=== PATIENT | female | born 1940 | race Caucasian/White ===

== ENCOUNTER 2017-03-07 07:59 | Inpatient (IN) | payer MEDICARE ==
[~2017-03-07] VITALS: Ht 160 cm; Wt 96.9 kg
[2017-03-07 08:04] VITALS: BP 195/81; PULSE 83; RESP 24; O2SAT 95
--- NOTE | 2017-03-07 08:26 | ED.REPORT ---
HPI-General Illness Date of Service March 07, 2017 ED Provider: Arielle Rogers MD The patient is a 76 year old female w/ a hx of DM, breast cancer, lumpectomy, radiation, stage 5 kidney disease, who presents to the ED due to difficulty breathing. For the past several evenings, she has been waking up in the middle of the night due to SOB. C/o associated jaw pain. She has noticed increased SOB during the day which increases with exacerbation and LE edema for the last month. She had pneumonia in early January and was put on a 5 day course of Zithromax in the beginning of February. She denies fever, cough, chest pain, or any other lung issues. Nursing Notes Stated Complaint: SOB Chief Complaint: Respiratory Complaints Nursing Notes Reviewed: Yes Allergies: Coded Allergies: Sulfa (Sulfonamide Antibiotics) (Verified Allergy, Intermediate, rash, ) amoxicillin (Verified Allergy, Intermediate, rash, 03/07/17) Scheduled Amlodipine (Amlodipine) 5 Mg Tablet 5 MG PO HS Atorvastatin (Lipitor) 20 Mg Tablet 20 MG PO DAILY Furosemide (Furosemide) 20 Mg Tab 20 MG PO DAILY Glipizide (Glipizide) 5 Mg Tablet 5 MG PO BID Insulin Detemir (Levemir Flextouch) 100 Unit/1 Ml Insuln.pen 10 UNIT SQ DAILY Lisinopril (Lisinopril) 10 Mg Tablet 10 MG PO DAILY General Time Seen by MD: 08:21 Chief Complaint Other (difficulty breathing ) Hx Obtained From: Patient Arrived By: Walk-in Sudden in Onset?: Yes Onset Occurred: 6 days ago Symptom Duration: Since onset Severity: Current: No pain currently Recent Healthcare: Recent doctor visit Similar Sx Previous: No Past Medical History Past Medical History Notes: high blood pressure high cholesterol Past Medical History breast cancer w/ radiation and lumpectomy stage 5 kidney disease Reports: Diabetes mellitus Past Surgical History lumpectomy Smoking History Unknown if Ever Smoker Social History Other Social History: Good social support, Local resident Ambulatory Status Independent Review of Systems LE edema jaw pain Full Review of Systems Constitutional: Denies: Fever Respiratory: Reports: Shortness of breath, Denies: Non-productive cough Cardiovascular: Denies: Chest pain Neurologic: Denies: Change LOC Complete sys rev & neg: except as marked. Physical Exam Vital Signs Vital Signs Date Time Temp Pulse Resp B/P Pulse Ox O2 Delivery O2 Flow Rate FiO2 03/07/17 11:20 84 25 194/64 98 Room Air 03/07/17 08:04 36.2 83 24 195/81 95 Initial VS: Reviewed Head / Eyes: Atraumatic, Normocephalic, PERRL ENT: Mucous membranes moist Respiratory: Breath sounds normal, Clear to auscultation, No respiratory distress Abdomen / GI: Soft, Non-tender, No guarding, No rebound, No distention Back: No CVA tenderness Lymphatic: No lymphadenopathy Skin: Warm, Dry Neurologic: Alert, Oriented, Nonfocal Psychiatric: Mood/affect normal, Behavior normal, Normal thought content General/Constitutional: Awake, Alert, Cooperative, Not toxic appearing Neck Vascular: Positive: JVD moderate (to the angle of the jaw) Cardiovascular: Heart rate NL (no S3), Regular rhythm Lower Ext Edema: Positive: Bilateral 2+ (without chronic venous stasis changes ) Interpretation & Diagnostics Lab Results Interpretation Result Diagram: 03/07/17 0910 03/07/17 0910 Test 03/07/17 09:10 03/07/17 11:21 White Blood Count 6.4th/mm3 (3.8-10.1) Red Blood Count 3.17mil/mm3 (3.90-5.20) Hemoglobin 9.2g/dL (12.0-15.6) Hematocrit 29.3% (35.0-46.0) Mean Corpuscular Volume 92.4fL (81-100) Mean Corpuscular Hemoglobin 29.0pg (27.0-35.0) Mean Corpuscular Hemoglobin Concent 31.4% (32.0-37.0) Red Cell Distribution Width 14.2% (12.3-15.4) Platelet Count 296bil/L (150-400) Neutrophils (%) (Auto) 63.5% (40-74) Lymphocytes (%) (Auto) 20.6% (14-46) Monocytes (%) (Auto) 8.6% (4-12) Eosinophils (%) (Auto) 4.8% (0-5) Basophils (%) (Auto) 2.3% (0-3) Sodium Level 140mEq/L (134-144) Potassium Level 5.7mEq/L (3.5-5.2) Chloride Level 107mEq/L (97-108) Carbon Dioxide Level 17mmol/L (18-29) Blood Urea Nitrogen 61mg/dL (8-27) Creatinine 3.02mg/dL (0.57-1.00) Estimat Glomerular Filtration Rate 22mL/min (>59) Glucose Level 128mg/dL (60-99) Lactic Acid Level 0.7mmol/L (0.4-2.0) Calcium Level 9.3mg/dL (8.5-10.1) Total Bilirubin 0.7mg/dL (0.0-1.2) Aspartate Amino Transf (AST/SGOT) 16U/L (0-50) Alanine Aminotransferase (ALT/SGPT) 14U/L (0-32) Alkaline Phosphatase 87U/L (25-165) Troponin T 0.178ug/L (0.0-0.011) Total Protein 6.8g/dL (6.4-8.4) Albumin 3.5g/dL (3.4-5.0) Procalcitonin 0.16ng/mL (0.00-0.08) Urine Color Straw (YELLOW) Urine Appearance Hazy (CLEAR,HAZY) Urine pH 6.0 (5.0-8.0) Urine Specific [place] 1.020 (1.003-1.035) Urine Protein 100mg/dL (NEG,TRACE) Urine Glucose (UA) 100mg/dL (NEGATIVE) Urine Ketones Negativemg/dL (NEGATIVE) Urine Occult Blood Small (NEGATIVE) Urine Nitrite Negative (NEGATIVE) Urine Bilirubin Negative (NEGATIVE) Urine Urobilinogen Normalmg/dL (NORMAL) Urine Leukocyte Esterase Small (NEGATIVE) Urine RBC 0-2/hpf (0-2) Urine WBC 11-50/hpf (0-5) Urine Epithelial Cells Occasional/hpf (NONE-MOD) Urine Crystals None seen (NONE SEEN) Urine Bacteria Few/hpf (NONE-FEW) Urine Hyaline Casts None/lpf (NONE) Urine Granular Casts None seen (NONE SEEN) Urine Waxy Casts None seen (NONE SEEN) Urine Red Blood Cell Casts None seen (NONE SEEN) Urine White Blood Cell Casts None seen (NONE SEEN) Urine Mucus None seen (None Seen) Urine Trichomonas None seen (NONE SEEN) Urine Yeast None (NONE SEEN) Urinalysis Comment None Urine Culture Reflexed Indicated ECG Interpretation ECG Interpretation: LVH w/ IVCD, LAD and secondary repolarization abnormal no comparison Time: 08:44 Interpreted by: ED physician Normal ECG Interpretation: Normal sinus rhythm (rate 82) X-Ray Chest Interpretation Chest Xray Interpretation: IMPRESSION: 1. Cardiomegaly with small pleural effusions and mild pulmonary edema suggesting congestive heart failure. 2. Asymmetric right infrahilar opacities consistent with atelectasis or consolidation. Dictated by: Mervin Sánchez M.D. on 03/07/2017 at 10:01 Approved by: Mervin Sánchez M.D. on 03/07/2017 at 10:06 View: Portable Interpretation / Wet Read by: Interpret - Radiologist Re-Eval/Medical Decision Med Decision/Clinical Course 76-year-old woman presents with a month of increasing lower extremity edema, and 2 weeks of increasing exertional dyspnea, 3 days of severe orthopnea. Exam chest x-ray and labs are all consistent with acute congestive heart failure for which she says she has never had a previous diagnosis. Her troponin is significantly elevated without ST elevation suggesting possibility of a non-STEMI sometime within the last few days at the reason for the worsening orthopnea. In the ER she is received IV Lasix and started on IV heparin, IV heparin rather than Lovenox is chosen due to her poor renal function, with the concerns for recent NSTEMI. Will need additional evaluation and likely echocardiogram to sort through timing and final diagnosis of NSTEMI Reviewed findings with patient and her family. She stable at time of transfer to the floor. Time of Eval: 11:16 Re-Evaluation/Progress Note: Pt rechecked. Pt walked to the bathroom and became extremely SOB, pale, and diaphoretic, but no chest pain. Symptoms resolved within 5 minutes. Informed pt of diagnosis of heart failure. Plan for admissionand to start heperin drip. She understands and agrees with plan. All questions addressed. Consultation #1: Referral / Consult Name: Primitivo Smith MD Consulted With: Cardiology Call Returned at: 11:06 Note: Case discussed. Dr. Smith will consult. Recommends to start heperin drip until we can get everything sorted out. Consultation #2: Referral / Consult Name: Naty Lopez DO Consulted With: Hospitalist Call Returned at: 12:55 Beer Merchant: Agrees with eval, Agrees with plan, Accepts admit Note: Case discussed with Dr. Lopez. Consultation #3: Referral / Consult Name: JohnNaty Consulted With: Hospitalist Call Returned at: 14:13 Beer Merchant: Accepts admit Note: Dr. Lopez visits pt in the ED. Counseled Regarding: Diagnosis, Lab results, Need for admission Discharge & Departure Primary Impression: CHF (congestive heart failure) Congestive heart failure type: unspecified congestive heart failure type Congestive heart failure chronicity: unspecified congestive heart failure chronicity Qualified Code: I50.9 - Heart failure, unspecified Additional Impression: NSTEMI (non-ST elevated myocardial infarction) Disposition: ADMITTED TO HOSPITAL Discharge Condition All VS Reviewed: Yes Condition: Stable Referrals: [facility] Scribe Attestation Portion of this note were transcribed by Ijeoma Ojeda. I, Dr. Arielle Rogers, personally performed the history, physical exam, and medical decision-making: I reviewed and confirmed the accuracy for the information in the transcribed note. Signed by: roberto Mlutani, 03/07/17 1400 copies to: [facility] Arielle Rogers MD March 07, 2017 08:26 Ijeoma Ojeda March 07, 2017 08:36
[2017-03-07] MEDS ORDERED: ATOR20TA PO (09:17)
[2017-03-07] MEDS ORDERED: INSU100I25 SQ (09:17)
[2017-03-07] MEDS ORDERED: GLPZ5T PO (09:17)
[2017-03-07] MEDS ORDERED: FUR20 PO (09:17)
[2017-03-07] MEDS ORDERED: LISI10TA PO (09:17)
[2017-03-07 09:31] LABS: BASOPHILS % (AUTO) 2.3 % (0-3); EOSINOPHILS % (AUTO) 4.8 % (0-5); MONOCYTES % (AUTO) 8.6 % (4-12); Mean Corpuscular Volume 92.4 fL (81-100); NEUTROPHILS % (AUTO) 63.5 % (40-74); Platelet Count 296 bil/L (150-400)
[2017-03-07] MEDS ORDERED: Furosemide 10 mg/mL 10 mL Inj IVPUSH ONE (10:05)
--- NOTE | 2017-03-07 10:07 | DRSVH ---
PROCEDURE: X-RAY CHEST ONE VIEW, PORTABLE ([id number]) INDICATIONS: dyspnea TECHNIQUE: One view of the chest was acquired. COMPARISON: None. FINDINGS: Surgical changes and devices: None. Lungs and pleura: There are small bilateral pleural effusions with mild associated compressive atelec tasis in the lung bases. Asymmetric right infrahilar opacities are also noted consistent with atelec tasis or consolidation. There is mild pulmonary edema. Mediastinum: Mediastinal contours appear normal. Heart size is enlarged. Bones and chest wall: No suspicious bony lesions. Overlying soft tissues appear unremarkable. IMPRESSION: 1. Cardiomegaly with small pleural effusions and mild pulmonary edema suggesting congestive heart fa ilure. 2. Asymmetric right infrahilar opacities consistent with atelectasis or consolidation. Dictated by: Mervin Sánchez M.D. on 03/07/2017 at 10:01 Approved by: Mervin Sánchez M.D. on 03/07/2017 at 10:06
[2017-03-07 10:27] LABS: TROPONIN T 0.178 ug/L (0.0-0.011)
[2017-03-07] MEDS ORDERED: Heparin 25K Unit/500mL 0.45 NS 25,000 UNIT in IV Premix 1 EACH IV ONE (11:10)
[2017-03-07] MEDS ORDERED: Heparin 5,000 Unit/mL Inj IVPUSH ONE (11:10)
[2017-03-07 11:20] VITALS: BP 194/64; PULSE 84; RESP 25; O2SAT 98
[2017-03-07 11:45] LABS: APPEARANCE,URINE HAZY (CLEAR,HAZY); COLOR,URINE STRAW (YELLOW); OCCULT BLOOD,URINE SMALL (NEGATIVE); UROBILINOGEN,URINE NORMAL (NORMAL)
[2017-03-07] MEDS ORDERED: SODIUM CHLORIDE 0.9% IV PRN (12:05)
[2017-03-07] MEDS ORDERED: HEPARIN IV PRN (12:05)
[2017-03-07] MEDS ORDERED: Heparin 25,000 UNIT in 0.9% Sodium Chloride 475 ML IV PRN ×6 (12:16→12:30)
[2017-03-07] MEDS ORDERED: AMLO5TAB2 PO (12:54)
[2017-03-07] MEDS ORDERED: Polyethylene Glycol (PEG) 17 Gm Powder PO PRN (14:15)
[2017-03-07] MEDS ORDERED: Alum-Mag Hydrox-Simeth 30 mL Suspension PO PRN (14:15)
[2017-03-07] MEDS ORDERED: Ondansetron 2 mg/mL 2 mL Inj IVPUSH PRN (14:15)
[2017-03-07] MEDS ORDERED: Heparin 25K Unit/500mL 0.45 NS 25,000 UNIT in IV Premix 1 EACH IV SCH (14:25)
[2017-03-07] MEDS ORDERED: Dextrose 10% 250 ML IV ONE (14:30)
[2017-03-07] MEDS ORDERED: Glucose 40% Oral Gel 15 Gm Tube PO PRN (14:30)
--- NOTE | 2017-03-07 14:45 | NUR ---
Admission Patient arrived to the floor from ED via bed accompanied by family. Denies any chest pain but states she does feel SOB when ambulating to restroom and back to bed. Gait is steady. Vital signs taken, blood pressure elevated. Oriented to floor, Heparin GTT infusing. Call light within reach.
[2017-03-07 14:49] LABS: Magnesium 2.1 mg/dL (1.6-2.6)
[2017-03-07 14:50] VITALS: PULSE 80
[2017-03-07 14:52] VITALS: BP 182/79; PULSE 78; RESP 18; O2SAT 93
[2017-03-07] MEDS ORDERED: Nitroglycerin 2% 1 Gm Ointment TOPICAL SCH (15:35)
[2017-03-07] MEDS: Sodium Chloride LOK Flush 10 mL Syringe IVFLUSH SCH (15:42)
[2017-03-07 16:02] LABS: Creatine Kinase 61 U/L (21-215)
[2017-03-07 16:05] LABS: TROPONIN T 0.166 ug/L (0.0-0.011)
[2017-03-07] MEDS: Insulin LISPRO 300 Unit/3 mL Inj SUBQ SCH ×2 (17:09→22:00)
[2017-03-07 17:45] VITALS: BP 181/73; PULSE 74; RESP 18; O2SAT 94
--- NOTE | 2017-03-07 18:19 | NUR ---
Vital Signs Dr. Lopez paged regarding patient's blood pressure of 181/73.
[2017-03-07 21:07] VITALS: BP 169/65; PULSE 78; RESP 18; O2SAT 94
[2017-03-07] MEDS: Furosemide 10 mg/mL 10 mL Inj IVPUSH SCH (21:17)
[2017-03-07 21:20] LABS: Creatine Kinase 57 U/L (21-215)
[2017-03-07 21:26] LABS: TROPONIN T 0.175 ug/L (0.0-0.011)
[2017-03-07] MEDS: Heparin 5,000 Unit/mL Inj IVPUSH PRN (21:39)
--- NOTE | 2017-03-07 22:16 | NUR ---
Lasix/Heparin/Kayexelate Administered lasix 80mg IV push for 20 minutes. Kayexelate 5g(20mL) administered verbal ordered of Dr. Lopez for Potassium of 5.9. Repeat CMP will be in am. Heparin drip running at 1125 units per hour. 3000 units administered per heparin protocol, for a ptt of 38.5. Next PTT draw will be @0221. No s/sx of bleeding.
--- NOTE | 2017-03-07 22:54 | PCM.HPMED ---
Subjective Date of Service March 07, 2017 Primary Provider: Admitting Physician: Naty Lopez DO Primary Care Physician: Nika Beck,Jesse Bedolla MD Attending Physician: Naty Lopez DO Admit Status: From the Emergency Department Chief Complaint: dyspnea History of Present Illness: 76-year-old pleasant white female with past medical history of diabetes type II hypertension, end-stage renal disease, hyperlipidemia, CAD, breast cancer status post lumpectomy is presenting with a chief complaint of dyspnea and orthopnea. Patient states that she has had pneumonia in early January and was recovering from it. she states that 2 weeks ago she started becoming more dyspneic, leg started more swollen. She feels she started getting better from that. She was recently treated for UTI 2 weeks ago. She did not take her medications this morning. For the past several evenings, she has been waking up in the middle of the night due to SOB. C/o associated jaw pain. She has noticed increased SOB during the day which increases with exacerbation and LE edema for the last month. She had pneumonia in early January and was put on a 5 day course of Zithromax in the beginning of February. She denies fever, cough, chest pain, or any other lung issues. She says that she was never told she had heart disease or CHF. She feels that her A1c is fairly well controlled. She does not have a current mate chief. She does see a clinic cma he she feels his name is Dr. Ruff in [place].Exam chest x-ray and labs are all consistent with acute congestive heart failure for which she says she has never had a previous diagnosis. Chest x-ray in the ER showed cardiomegaly and mild pulmonary congestion, asymmetric right infrahilar opacities, concerning for consolidation. Heparin drip was initiated after Dr. Smith was contacted. Troponin was elevated at 0.178. Blood pressure is elevated at 194/64. Hemoglobin is 9.2. Her creatinine is 3.2 she is given Lasix 80 mg, aspirin 325 mg, and is productive heparin drip. In the room her heart rate is 78 respirations of 20 Patient is admitted to the [facility] team for management of dyspnea and orthopnea likely secondary to an STEMI, , hyperkalemia, CHF, ESRD stage 5, diabetes type II, UTI. Review of Systems: Gen.: Endorses weight gain patient has not been having fevers and malaise Eyes: no visual disturbances or blurring vision HEENT: No nose/throat drainage, no pain in ears or throat, no hearing loss Lymph: No lymph nodes noted Cardiac: No chest pain, positive for orthopnea, positive for PND, negative for palpitations , positive for pedal edema or +dyspnea on exertion Pulmonary: Negative for wheezing or bringing up of sputum + worsening dyspnea and cough, negative for left-sided chest pain GI: No anorexia nausea vomiting blood or black in the stool : no dysuria hematuria urinary frequency or decrease in urine output Musculoskeletal: Joint swelling no joint pain no new muscle aches or back pain Neuro: No syncope, seizures no loss of consciousness no new focal weakness, numbness or tingling Psychiatric: New new anxiety insomnia or depression Endocrine: No new heat or cold intolerances polyuria or polydipsia Hematology: No lymphadenopathy or easy bleeding or bruising noted skin: No new rashes, stasis dermatitis All other review of systems negative except for as stated above and in the history of present illness Allergies Coded Allergies: Sulfa (Sulfonamide Antibiotics) (Verified Allergy, Intermediate, rash, ) amoxicillin (Verified Allergy, Intermediate, rash, 03/07/17) PMH Social History Hx Alcohol Use: No Hx Substance Use: No Smoking Status: Unknown if Ever Smoker Exam Vital Signs Vital Sign - Last Date Time Temp Pulse Resp B/P Pulse Ox O2 Delivery O2 Flow Rate FiO2 03/07/17 14:30 36.2 84 25 194/64 98 Room Air Exam General: NAD, laying in bed, some what dyspneic male HEENT: NCAT, poor dentition Eyes: [place] conjunctivae. No ptosis, PERRL Neck: No masses, trachea midline, no thyromegaly Lungs: CTA with normal respiratory effort, no crackles or wheezes CV: RRR, soft systolic murmurs/no rubs/no gallops, normal PMI GI: Soft, non-tender with no hepatosplenomegaly MSK: Normal gait and station, no digital cyanosis Skin: Warm and dry. No rash, lesions or ulcers Psych: A&O X3, with appropriate affect Neuro: No focal deficits Lab and Diagnostics Result Diagram: 03/07/17 0910 03/07/17 0910 X-Rays, CTs and MRIs Chest x-ray IMPRESSION: 1. Cardiomegaly with small pleural effusions and mild pulmonary edema suggesting congestive heart failure. 2. Asymmetric right infrahilar opacities consistent with atelectasis or consolidation. Dictated by: Mervin Sánchez M.D. on 03/07/2017 at 10:01 Approved by: Mervin Sánchez M.D. on 03/07/2017 at 10:06 Assessment & Plan This is a pleasant 76-year-old female with a past medical history of diabetes mellitus, hypertension, hyperlipidemia, heart disease, end-stage renal disease currently not on dialysis presenting due to her tachycardia and dyspnea. Her troponin is significantly elevated without ST elevation suggesting possibility of a non-STEMI sometime within the last few days as the reason for the worsening orthopnea. Dr. Smith was consulted in the ER, he Recommends to start heperin drip until we can get everything sorted out. Assessment #1 Recent NSTEMI, present on admission: Cardiology is aware per ER -- Consult cardiology -- Continue heparin drip -- Trend troponins -- Echocardiogram -- A1c lipid panel in the a.m. -- Make sure to give patient beta juan m and statin: Avoid renal toxic medications such as lisinopril, spironolactone -- When necessary nitroglycerin, morphine -- Oxygen as needed -- Telemonitoring -- We will continue heparin drip. Assessment #2 hyperkalemia, present on admission: -- By mouth Kayexalate 5 g is given, also expect that because of Lasix her potassium will come down in the a.m. -- avoid spironolactone. Patient is hyperkalemic on admission. Assessment #3 acute congestive heart failure of unknown type: Present on admission -- Order BNP -- Lasix 80 mg IV twice a day as ordered -- Nitroglycerin, morphine, oxygen as needed -- Daily weights, accurate I&O's Assessment #4 Diabetes type II with hyperglycemia complications -- No sliding scale insulin is ordered -- A1c, lipid panel in the a.m. Assessment #5 UTI: The patient was recently treated -- We will wait for the cultures for treatment Assessment #6 hypertension: Elevated blood pressure present admission she did not take her meds. 8. She has received Demerol 9, spironolactone in the ER -- We will continue her evening medications -- We will add metoprolol 12.5 twice a day Assessment #7 end-stage renal disease: -- Consulted nephrology, appreciate their recommendations -- Avoid renal toxic medications Disposition: She will likely need a better control of her CHF then a cath Procedure. Resuscitation Status: CPR: Attempt Resuscitation (Sr. Kathryn Castaneda is her alternate decision-maker) Time spent 45 minutes Nayt Lopez DO March 07, 2017 14:33
[2017-03-08] VITALS (8 sets, daily range): BP systolic 120–172; BP diastolic 54–70; PULSE 68–85; RESP 18; O2SAT 93–95
[2017-03-08] MEDS: Sodium Chloride LOK Flush 10 mL Syringe IVFLUSH SCH ×3 (00:30→16:28)
[2017-03-08 02:19] LABS: BASOPHILS % (AUTO) 2.4 % (0-3); EOSINOPHILS % (AUTO) 6.7 % (0-5); MONOCYTES % (AUTO) 10.8 % (4-12); Mean Corpuscular Hemoglobin 29.3 pg (27.0-35.0); Mean Corpuscular Volume 91.9 fL (81-100); NEUTROPHILS % (AUTO) 57.1 % (40-74); Platelet Count 255 bil/L (150-400)
[2017-03-08] MEDS: Furosemide 10 mg/mL 10 mL Inj IVPUSH SCH ×2 (06:30→16:32)
[2017-03-08] MEDS: Insulin LISPRO 300 Unit/3 mL Inj SUBQ SCH ×4 (08:00→22:00)
--- NOTE | 2017-03-08 09:13 | DRSVH ---
[facility] [address] [place] [address] Echocardiogram Report Name: Nicole ROY te: 03/08/2017 Bess ght: 62 in Hospital Exam Location: [facility] ght: 220 lb Gender: Female BSA : 2.0 m2 : 1940 Age: 76 yrs BP: 163/54 mmHg Reason For Study: CHF Ordering Physician: [facility]PITAL[facility] Performed By: Ember Rivers Referring Physician: DR. TORITO HAIDER ([place]) Interpretation Summary Left ventricular wall thickness is mildly increased. Left ventricular systolic function is normal without obvious focal wall motion abnormalities. The ejection fraction is estimated to be 60-65%. Assessment of diastolic parameters suggests a pseudonormalization pattern, consistent with elevated filling pressures. The right ventricle is normal in size and function. The right ventricular systolic pressure is estimated at 62 mmHg assuming a right atrial pressure of 15 mm Hg. The left atrium is mildly dilated. The right atrium is mildly dilated. There is moderate mitral regurgitation. There is moderate tricuspid regurgitation. There is no other significant valvular heart disease. The aortic root is normal size. There is a trivial pericardial effusion noted. There are no echocardiographic or Doppler indications for cardiac tamponade. Findings are consistent with acute diastolic heart failure. Procedure: A two-dimensional transthoracic echocardiogram with color flow and Doppler was performed. The study quality was technically difficult. The apical views were difficult to obtain and are suboptimal in quality. A contrast injection of Definity was performed to improve assessment of LV function. Contrast was injected into an intravenous site in the left arm. A total of 3 cc of contrast was given. There is no prior echocardiogram noted for this patient. The patient was in normal sinus rhythm during the exam. The patient did well with the Definity Contrast. Left Ventricle: The left ventricle is normal in size. Left ventricular wall thickness is mildly increased. Left ventricular systolic function is normal. The ejection fraction is estimated to be 60-65%. There are no obvious focal wall motion abnormalities noted but poor endocardial definition reduces the sensitivity for the detection of such. Assessment of diastolic parameters suggests a pseudonormalization pattern, consistent with elevated filling pressures. Right Ventricle: The right ventricle is normal in size and function. Atria: The left atrium is mildly dilated. The right atrium is mildly dilated. There is no Doppler evidence for an atrial septal defect. Mitral Valve: The mitral valve leaflets appear mildly thickened, but open well. There is mild mitral annular calcification. There is moderate mitral regurgitation. Aortic Valve: The aortic valve is trileaflet. There is mild aortic valve sclerosis. The aortic valve opens well. No aortic regurgitation is present. Tricuspid Valve: The tricuspid valve leaflets are thin and pliable. There is moderate tricuspid regurgitation. The right ventricular systolic pressure is estimated at 62 mmHg assuming a right atrial pressure of 15 mm Hg. Pulmonic Valve: The pulmonic valve leaflets are thin and pliable; valve motion is normal. There is no pulmonic valvular regurgitation. There is no other significant valvular heart disease. Great Vessels: The aortic root is normal size. The dimensions of the ascending aorta are normal. The pulmonary artery is normal size. The IVC is dilated (diameter is greater than 2.1 cm) and it collapses less than 50% with a sniff. This suggests a high right atrial pressure of 15 mm Hg. Pericardium/ Pleura There is a trivial pericardial effusion noted. There are no echocardiographic or Doppler indications for cardiac tamponade. There is no pleural effusion. MMode/2D Measurements & Calculations LVIDd: 5.4 cm LA dimension: 4.6 cm RA long axis LVOT diam: 2.1 cm LVIDs: 3.8 cm AoV Opening FS: 30.1 % LA A2 area: 23.8 cm RA area EPSS: 1.9 cm LA A4 area: 21.7 cm Ao root diam IVSd: 1.4 cm LA length (vol) : 21.2 cm LVPWd: 1.1 cm RA vol asc Aorta Diam LA vol: 73.4 ml : 71.1 ml LA vol index RA Ao Arch Diam (Prox : 35.3 mm2 Trans): 2.3 cm : 36.4 ml/m2 LV armstrong. diameter/BSA LV sys. diameter/BSA RVD2 (mid) (cm/m^2): 2.7 (cm/m^2): 1.9 : 3.6 cm Doppler Measurements & Calculations Ao V2 max MV E max bradley MV E/A: 1.4 TR max bradley : 179.1 cm/sec : 122.3 cm/sec Med Peak E' Bradley : 341.4 cm/sec Ao max PG MV A max bradley TR max P.6 mmHg : 12.8 mmHg : 84.7 cm/sec E/E' med: 26.9 PA V2 max Ao mean PG MV P1/2t Lat Peak E' Bradley : 68.8 cm/sec : 42.1 msec PA mean P.1 mmHg LVOT Max Bradley E/E' lat: 17.8 PA Accel Time : 94.5 cm/sec MR ERO: 0.12 cm2 E/e' average: 22.3 : 0.09 sec YONY(I,D) Pulm A Revs Dur : 1.8 cm2 MV A dur: 0.14 sec sev ratio MV dec time MV P1/2t max bradley Ao V2 mean LV V1 max PG : 0.14 sec : 132.8 cm/sec MVA(P1/2t) Ao V2 VTI: 41.2 cm LV V1 VTI: 21.7 cm : 5.2 cm2 YONY(V,D): 1.8 cm2 MR flow rate PA V2 mean YONY indexed to BSA Pulm A Revs Dur - MV : 69.1 cm3/sec : 52.1 cm/sec (cm^2/m^2): 0.89 A Dur: -0.02 msec MR PISA radius Reading Physician:KARTHIK
[2017-03-08] MEDS: Heparin 5,000 Unit/mL Inj IVPUSH PRN (09:21)
--- NOTE | 2017-03-08 12:58 | PCM.CHPCAR ---
Consult Subjective Date of service March 08, 2017 Date of admit March 07, 2017 at 13:45 Provider Requesting Consult Primary Care Physician Primary Care Physician: Nika Beck,Jesse Bedolla MD Chief Complaint shortness of breath and leg swelling History of Present Illness This patient is a 76 year old woman with no past history of coronary artery disease that presented to the hospital with one week of increasing shortness of breath and peripheral edema. Claims prior to this she had been recovering from pneumonia in January and doing well but inking it was returning. Past medical history is significant for end-stage renal disease, type II diabetes mellitus, hyperlipidemia, hypertension, peripheral neuropathy, breast cancer. She does admit to one episode of "jaw and facial pain for approximately 30 minutes sometimes this past week. It was not associated with activity specifically. It was resolved after she "brushed her teeth" she has not had any nausea vomiting or sweats. She denies palpitations or exertional dyspnea. She does admit to exertional dyspnea only in the past week with some progression. She has not specifically noticed any changes in her weight. She is somewhat vague in describing chest pressure in general. She does admit to a "feeling in her chest" when she is short of breath. She has had multiple episodes of orthopnea waking her at night. She has recently moved back to the area from [place]. Of note she admits to a stress test for unknown reasons approximately 5 years ago while living away. We have no results at this time. She reports having an uncomfortable experience with what sounds like a pharmacologic stress test that was reportedly normal per patient. Review of Systems Review of Systems Gen.-recent pneumonia one month ago, denies fever chills or night sweats. HEENT-ears popping with some minor decrease in hearing. Denies congestion or sore throat, denies vision change. Chest-occasional cough, nonproductive shortness of breath is improving since hospitalization. Cardiovascular-improving exertional dyspnea and reports no orthopnea last night. She denies palpitations or chest pain. Previous episode of jaw pain as described above. Admits edema is improving. Abdominal-constipation, ongoing, no bowel movements since here. Recent black stool attributed to iron supplementation for her anemia. Denies bright red blood. Denies abdominal pain. -treated for UTI 2 weeks ago. Claims significant positive urine output in the hospital here with furosemide use. Denies vaginal symptom otherwise. Integument-no new rash or infection. Chronic lesion in the right upper medial thigh that she is concerned with. Endocrine-positive2 oei-[id number]-[id number] diabetes denies significant shifts in weights, sweats or chills, no thyroid disease. Denies hot flashes. Neurologic-chronic numb and tingly to her toes and feet with diabetic peripheral neuropathy. Denies headache or vision change significant focal weakness. Psychiatric-patient is experiencing some stress with recent move and buying a house back in [place] no depression. Hematological-no bruises or bleeding disorders. PMH Past Medical History Type II diabetes mellitus-since approximately 1995. Hypertension End-stage renal disease (patient aware of kidney issues over the last 2 years) Hyperlipidemia Breast cancer Peripheral neuropathy. Past Surgical History Bilateral cataract surgery Lumpectomy left breast, breast cancer. Partial removal left great toe. Hx Diabetes: YesBedside Blood Glucose: 155 Scheduled Amlodipine (Amlodipine) 5 Mg Tablet 5 MG PO HS (Reported) Atorvastatin (Lipitor) 20 Mg Tablet 20 MG PO DAILY (Reported) Furosemide (Furosemide) 20 Mg Tab 20 MG PO DAILY (Reported) Glipizide (Glipizide) 5 Mg Tablet 5 MG PO BID (Reported) Insulin Detemir (Levemir Flextouch) 100 Unit/1 Ml Insuln.pen 10 UNIT SQ DAILY ( Reported) Lisinopril (Lisinopril) 10 Mg Tablet 10 MG PO DAILY (Reported) Current Inpatient Medications Current Medications Amlodipine Besylate 5 mg HS PO; Start 03/07/17 at 21:00; Stop 03/07/17 at 21:00 ; Status DC Atorvastatin Calcium 20 mg DAILY PO Last administered on 03/08/17 08:42; Admin Dose 20 MG; Start 03/08/17 at 08:30 Furosemide 20 mg DAILY PO Last administered on 03/07/17 15:02; Admin Dose 20 MG ; Start 03/07/17 at 14:10; Stop 03/07/17 at 20:24; Status DC Amlodipine Besylate 5 mg HS PO; Start 03/07/17 at 14:15; Stop 03/07/17 at 14:26 ; Status DC Sodium Chloride 10 ml Q8 IVFLUSH Last administered on 03/08/17 08:42; Admin Dose 10 ML; Start 03/07/17 at 16:30 Al Hydrox/Mg Hydrox/Simethicone 30 ml Q6H PRN PO; Start 03/07/17 at 14:15 Ondansetron HCl 4 to 8 mg Q4H PRN IVPUSH; Start 03/07/17 at 14:15 Senna 17.2 mg BID PRN PO; Start 03/07/17 at 14:15 Polyethylene Glycol 17 gm DAILY PRN PO; Start 03/07/17 at 14:15 Acetaminophen 650 mg Q4H PRN PO; Start 03/07/17 at 14:15 Aspirin 162 mg DAILY PO; Start 03/07/17 at 14:15; Stop 03/07/17 at 14:20; Status DC Aspirin 162 mg DAILY PO Last administered on 03/08/17 08:41; Admin Dose 162 MG ; Start 03/08/17 at 08:00 Heparin Sodium (Porcine) Per Protocol for a... PRN PRN IVPUSH Last administered on 03/08/17 09:21; Admin Dose 3,000 UNIT; Start 03/07/17 at 14:25 Nitroglycerin 0.4 mg Q5MIN PRN SL; Start 03/07/17 at 14:25 Morphine Sulfate 1-2 mg Q4H PRN IVPUSH; Start 03/07/17 at 14:25 Amlodipine Besylate 5 mg HS PO; Start 03/07/17 at 21:00; Stop 03/07/17 at 21:00 ; Status DC Insulin Human Lispro Nutritional Dose to be given pr... [facility] SUBQ; Start at 17:30 Metoprolol Tartrate 12.5 mg BID PO Last administered on 03/07/17 15:02; Admin Dose 12.5 MG; Start 03/07/17 at 14:42; Stop 03/07/17 at 15:32; Status DC Nitroglycerin 2 inch NOW TOPICAL; Start 03/07/17 at 15:35 Furosemide 80 mg 06,18 IVPUSH Last administered on 03/08/17 06:30; Admin Dose 80 MG; Start 03/07/17 at 20:15 Metoprolol Tartrate 12.5 mg BID PO Last administered on 03/08/17 08:40; Admin Dose 12.5 MG; Start 03/08/17 at 08:30 Allergies: Coded Allergies: Sulfa (Sulfonamide Antibiotics) (Verified Allergy, Intermediate, rash, ) amoxicillin (Verified Allergy, Intermediate, rash, 03/07/17) Social History Occupation: retired from [employer] due to wiHx Alcohol Use: NoHx Substance Use: NoHx Tobacco Use: No (never) Smoking Status: Never Smoker Unknown if Ever Smoker Living Arrangement: [facility] (sister temporarily living with her while looking for a home) Exam Vital Signs Vital Sign - Last Date Time Temp Pulse Resp B/P Pulse Ox O2 Delivery O2 Flow Rate FiO2 03/08/17 09:23 36.7 77 18 172/70 94 Room Air Intake and Output 03/07/17 03/07/17 03/08/17 Cumulative From/Thru 15:00 23:00 07:00 03/07/17 08:04 - 03/08/17 06:39 Intake Total 450 ml 619 ml 1069 ml Output Total 1700 ml 1700 ml 3400 ml Balance -1250 ml -1081 ml -2331 ml Intake Oral 450 ml 250 ml 700 ml IV Total 369 ml 369 ml Output Urine Total 1700 ml 1700 ml 3400 ml # Bowel Movements 0 0 Objective General-the patient sitting quietly reclined in bed in no apparent distress. HEENT- eyes clear PERRLA face symmetrical, pharynx moist without redness or lesion. Neck-supple without adenopathy or thyromegaly appreciated. Chest-symmetric, breathing easy without retractions. Lungs with mild basilar crackles that partially clear with cough. Cardiovascular- heart is regular rate and rhythm without murmur click or rub. No gallop appreciated. Trace to 1+ pitting peripheral edema to lower extremities. Normal carotid upstroke without bruit. No abdominal bruit appreciated right dorsalis pedis is 1+ left pedal pulses nonpalpable. No bruits appreciated and groins. Femoral pulses not palpated. Abdominal-soft nontender positive bowel sounds 4 no bruits. Integument- benign, lesion of concern appears to be a seborrheic keratosis on her right upper medial thigh. Neurologic- patient alert and oriented 4. Positive normal movement and apparent coordination and upper extremities. Appears to have normal motor function in her lower extremities, sensitivity testing not performed. Psychiatric- the patient appears to be in good spirits, mood appropriate for situation. Lab and Diagnostics Result Diagram: 03/08/17 0835 03/08/17 0835 X-Rays, CTs and MRIs Chest x-ray per radiologist review upon admission did show cardiomegaly with small pleural effusion and mild pulmonary edema suggestive of CHF. Some asymmetry of the right infrahilar opacities consistent with atelectasis or consolidation. 12-lead ECG Charted EKG shows LVH with intraventricular conduction delay, possible previous anteroseptal infarction. Additional Diagnostics: Overnight telemetry, heart rate elevated around 120 bpm. Otherwise no alarms Echocardiogram normal LV function without focal wall motion abnormalities. EF 60-65%. Assessment of diastolic parameters suggest pseudonormalization consistent with elevated filling pressures. RV was normal in size and function. RV systolic pressure estimated 62 mmHg assuming RA pressure estimated 15 mmHg. LA is mildly dilated, RA is mildly dilated. There is moderate mitral regurgitation, moderate tricuspid regurgitation. No other significant valvular disease. Trivial pericardial effusion noted with no evidence of cardiac tamponade. Findings are consistent with acute diastolic heart failure. Assessment & Plan Assessment Patient is very pleasant 76-year-old female with no known prior history of coronary artery disease that presents with one week of dyspnea and peripheral edema with vague jaw pain as a discreet event. Past medical history is significant for end-stage renal disease, hypertension, hyperlipidemia, type II diabetes mellitus with peripheral neuropathy. Breast cancer. Patient presented to the hospital with CHF symptoms. Chest x-ray and echocardiogram verify heart failure findings. Echo suggests acute diastolic heart failure. Her troponins were elevated though given her end-stage renal disease and lack of previous available labs and old medical records it is difficult to know their significance. Our feeling is her CHF is most likely related to chronic kidney disease with acute renal failure and hypertension. Ischemia cannot be completely ruled out given signs of possible anteroseptal infarct on her EKG although her echocardiogram did not show focal wall motion abnormalities. An ischemic workup may be appropriate as she becomes more stabilized over the next few days. #1. Acute diastolic heart failure. Continue Lasix 80 mg twice a day for now. Stop metoprolol 12.5 twice a day. Start carvedilol 6.25 mg twice a day. Start isosorbide dinitrate 10 mg 3 times a day. Start hydralazine 25 mg 3 times a day. Hold tyron or arb for now given hyperkalemia. #2. End-stage renal disease-we will defer to nephrology recommendations. #3. Hyperkalemia- hold medications that will increase potassium, tyron, arb unless renal functions improved, we may be able to introduce these medications cautiously with close monitoring. #4. Diabetes type II-management per service #5. Hypertension- continue amlodipine 10 mg daily. We will add hydralazine 25 mg 3 times a day, isosorbide 10 mg 3 times a day. Stop metoprolol 25 mg twice a day. Start carvedilol 6.25 mg twice a day #6. Rule out ischemic heart disease. Consider Lexiscan nuclear stress test once her renal functions, potassium normalize and patient becomes more stable over the next 2-3 days. Resuscitation Status: CPR: Attempt Resuscitation (. Kathryn Tonya is her alternate decision-maker) Time spent 80 minutes Attending Statement I have reviewed the PA's cardiology consultation and agree with the assessment and plan. I discussed with the patient about the plan and she agrees to proceed with a Lexiscan sestamibi when she is more stable, possibly Friday. She does not want to proceed with coronary angiogram since she will be a high risk for developing the need for hemodialysis. She will need aggressive anti-HTN meds and diuretics for her diastolic HF which is a result of her chronic and uncontrolled HTN and DM. She does not have any findings so far that would suggest acute coronary syndrome. We will follow up with you after she has completed her stress test to decide on further management. Barrett Gonzalez PA-C March 08, 2017 12:58 Primitivo Simth MD March 08, 2017 16:44
--- NOTE | 2017-03-08 13:36 | NUR ---
Social Work: Initial Assessment D: EMR reviewed. Pt is a 76 y/o female admitted for CHF, N Stemi. per H&P. FAINA met with pt at bedside to conduct initial assessment. Pt was alert and oriented x3. SW explained role and wrote phone number on white board. Pt's primary contact is sister Kathryn Castaneda ([phone]).Pt's insurance is Medicare and PCP is Angelica Alfaro MD. Pt has LTC insurance through [employer] and no VA insurance. Pt has no Hx of HH or SNF. Pt is independent with ADLs. Pt uses a cane to ambulate. Pt owns a FWW but does not use regularly. Pt does own any other DME. Pt drives. Pt is independent at baseline. Pt lives alone in [place] in a single-story, level home. SW confirmed that pt will transport home via POV with her sister when she is medically stable. SW does not anticipate any discharge needs at this time but will continue to follow if needs arise. A: Pt who ambulates with a cane but is otherwise independent at baseline. P: Pt to discharge home with sister via POV when medically stable. FAINA does not anticipate any discharge needs at this time but will continue to follow if needs arise. KATHARINE Juarez Addendum: 03/08/17 at 1344 by MARYA FOUNTAIN SS Amended: Links added.
--- NOTE | 2017-03-08 15:25 | CONS ---
[address] [address] CONSULTATION REPORT PATIENT: Nicole ROY : 1940 MR#: [id number] ADMIT: 03/07/2017 JOB ID: [id number] DATE OF SERVICE: 03/08/2017 NEPHROLOGY CONSULTATION: REQUESTING PHYSICIAN: Dr. Lopez. REASON FOR CONSULTATION: Management of chronic kidney disease. CHIEF COMPLAINT: Worsening shortness of breath. PRESENT ILLNESS: This is a very pleasant 76-year-old lady with significant past medical history of stage 5 chronic kidney disease, type 2 diabetes, hypertension, dyslipidemia, breast cancer, status post lumpectomy who presented to the hospital due to worsening shortness of breath. The patient reported that over the past week also she started having worsening shortness of breath and lower extremity swelling. She reports dyspnea on exertion, orthopnea. The patient stated that she had an episode of jaw and facial pain sometime last week as well. Also noticed some chest pressure. She decided to come to the hospital for further investigation. The patient also reported that she was diagnosed with pneumonia in January. She was treated with oral Zithromax. The patient reports no history of fever, chills, productive cough, dysuria, nor hematuria. The patient reports no history of significant heart disease. Her initial blood work showed a serum creatinine of 3.02. The patient was evaluated by respiratory practitioner, Dr. Ruff in [place]. She was told that she had stage 5 chronic kidney disease and that she will require dialysis in the near future. However, she stated that she had ignored it. The patient denied current use of NSAIDs. No history of vasculitis or kidney stones. The patient was taking furosemide 20 mg once a day. Overnight she received IV furosemide 80 mg every 12 hours. She stated that she has gone to the bathroom too many times after IV diuretics administered. She seems doing better with all the treatment she has received. Of note, her serum troponin was elevated. She was started on heparin drip for non-ST elevation FL. PAST MEDICAL HISTORY: 1. Type 2 diabetes diagnosed approximately 20 years ago, complicated by retinopathy, neuropathy and nephropathy. 2. Hypertension with hypertensive nephrosclerosis. 3. Stage 5 chronic kidney disease. 4. Dyslipidemia. 5. History of breast cancer status post left lumpectomy. 6. Obesity. 7. Dyslipidemia. PAST SURGICAL HISTORY: 1. Status post left breast lumpectomy. 2. Partial removal of left great toe. 3. Bilateral cataract surgery. SOCIAL HISTORY: Denies current use of alcohol, tobacco, or illicit drugs. The patient has moved back to [facility] from [place]. ALLERGIES: SULFA and AMOXICILLIN. MEDICATIONS: Amlodipine, Lipitor, furosemide, glipizide, Levemir and lisinopril. REVIEW OF SYSTEMS: Fourteen point review of system was performed. PHYSICAL EXAMINATION: Vitals: Temperature 36.3, pulse 72, respiratory rate 18, blood pressure 164/66, O2 sat 95% on room air. General appearance: Awake, alert and oriented x3. In no acute distress. HEENT: PERRLA. Atraumatic. Moist mucous membranes. Mild pallor. No jaundice. No significant JVD. No lymphadenopathy. No thyroid gland enlargement. Heart: Regular rhythm. Normal S1, S2. Systolic murmur noted. Lungs: Fine crackles at the bases. No wheezing. No rhonchi. Good air entry. No accessory muscle use. Abdomen: Soft, active bowel sounds. Nontender. Nondistended. No hepatosplenomegaly. Extremities: 2+ edema on the lower extremities. LABORATORY: Sodium 139, potassium 5.7, chloride 107, bicarbonate 18, BUN 62, creatinine 3.18. Potassium 5.5. WBC 6.7, hemoglobin 8.6. PTT 40.1. Urine specific gravity 1.020, protein 100, 11-50 WBCs, 0-2 RBCs. ASSESSMENT: 1. 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 2. Non-ST elevation myocardial infarction. 3. Acute diastolic heart failure. 4. Hyperkalemia. 5. Anemia of chronic kidney disease. 6. Anion gap metabolic acidosis. 7. Hypertension with hypertensive nephrosclerosis. 8. Type 2 diabetes with nephropathy. 9. Pyuria, pending for finalized urine culture. PLANS: 1. I have discussed with the patient regarding renal replacement therapy. She seems unhappy about the idea of starting hemodialysis. Hence I will continue only medical management. We will continue IV Lasix 80 mg q.12 hours. I will put her on metolazone 5 mg every day. We will order urine protein creatinine ratio and urine protein electrophoresis. We will order PTH 20, vitamin D 25 and anemia workup. 2. The patient will be on low-potassium diet and low salt diet. We will order a kidney sonogram. Recommend to hold JOSE CARLOS inhibitor, ARB and Potassium- sparing diuretics. Thank you for allowing me to participate in the care of your patient. We will monitor along with you. TONID
--- NOTE | 2017-03-08 17:30 | NUR ---
Activity: Patient has been ambulating to the BR with SBA without issues. She continues to be on a cardiac heparin drip as ordered. She had an Echo, a nephrology consult and a Cardiology consult today.
[2017-03-08] MEDS ORDERED: Glucose 40% Oral Gel 15 Gm Tube PO PRN (18:15)
[2017-03-08] MEDS ORDERED: Dextrose 10% 250 ML IV ONE (18:15)
--- NOTE | 2017-03-08 22:30 | PCM.PNMED ---
Subjective Date of Service March 08, 2017 Subjective Patient states that she has been urinating fairly frequently. She states she is definitely feeling much better with her breathing. She has no chest pain Exam Vital Signs Vital Sign - Last Date Time Temp Pulse Resp B/P Pulse Ox O2 Delivery O2 Flow Rate FiO2 03/08/17 05:51 75 03/08/17 05:06 36.9 18 163/54 93 Room Air Intake and Output 03/07/17 03/07/17 03/08/17 Cumulative From/Thru 15:00 23:00 07:00 03/07/17 08:04 - 03/08/17 06:39 Intake Total 450 ml 619 ml 1069 ml Output Total 1700 ml 1700 ml 3400 ml Balance -1250 ml -1081 ml -2331 ml Intake Oral 450 ml 250 ml 700 ml IV Total 369 ml 369 ml Output Urine Total 1700 ml 1700 ml 3400 ml # Bowel Movements 0 0 Exam General: NAD, laying in bed, some what dyspneic male HEENT: NCAT, poor dentition Eyes: [place] conjunctivae. No ptosis, PERRL Neck: No masses, trachea midline, no thyromegaly Lungs: CTA with normal respiratory effort, no crackles or wheezes CV: RRR, soft systolic murmurs/no rubs/no gallops, normal PMI GI: Soft, non-tender with no hepatosplenomegaly MSK: Normal gait and station, no digital cyanosis Skin: Warm and dry. No rash, lesions or ulcers Psych: A&O X3, with appropriate affect Neuro: No focal deficits IVs and Medications IV Fluids none Medications Reviewed: Medications were reviewed in detail Lab and Diagnostics Result Diagram: 03/08/17 02003/08/17 020 X-Rays, CTs and MRIs Chest x-ray IMPRESSION: 1. Cardiomegaly with small pleural effusions and mild pulmonary edema suggesting congestive heart failure. 2. Asymmetric right infrahilar opacities consistent with atelectasis or consolidation. Dictated by: Mervin Sánchez M.D. on 03/07/2017 at 10:01 Approved by: Mervin Sánchez M.D. on 03/07/2017 at 10:06 Cardiac Echo Impressions Echocardiogram Interpretation Summary Left ventricular wall thickness is mildly increased. Left ventricular systolic function is normal without obvious focal wall motion abnormalities. The ejection fraction is estimated to be 60-65%. Assessment of diastolic parameters suggests a pseudonormalization pattern, consistent with elevated filling pressures. The right ventricle is normal in size and function. The right ventricular systolic pressure is estimated at 62 mmHg assuming a right atrial pressure of 15 mm Hg. The left atrium is mildly dilated. The right atrium is mildly dilated. There is moderate mitral regurgitation. There is moderate tricuspid regurgitation. There is no other significant valvular heart disease. The aortic root is normal size. There is a trivial pericardial effusion noted. There are no echocardiographic or Doppler indications for cardiac tamponade. Findings are consistent with acute diastolic heart failure. Assessment & Plan This is a pleasant 76-year-old female with a past medical history of diabetes mellitus, hypertension, hyperlipidemia, heart disease, end-stage renal disease currently not on dialysis presenting due to her tachycardia and dyspnea. Her troponin is significantly elevated without ST elevation suggesting possibility of a non-STEMI sometime within the last few days as the reason for the worsening orthopnea. Dr. Smith was consulted in the ER, he Recommends to start heperin drip until we can get everything sorted out. Assessment #1 elevated troponins, and NSTEMI: Ruled out for Dr. Smith -- Trend troponins: Troponins remained fairly stable around .16-0.17 -- Echocardiogram: As ordered and performed Dr. Smith says that he did the echo himself and has been admitted findings are nonfocal he does not feel this is a [place]. He recommends that we wait till her CHF that was done and a stress test on Friday. "There is moderate mitral regurgitation. There is moderate tricuspid regurgitation.", 60-65% EF, diastolic filling dysfunction also reported -- A1c lipid panel in the a.m. -- Make sure to give patient beta juan m and statin: Avoid renal toxic medications such as lisinopril, spironolactone: -- When necessary nitroglycerin, morphine -- Oxygen as needed -- Telemonitoring -- We will continue heparin drip: Heparin drip discontinued after discussing with cardiology as she is not considered to be STEMI/NSTEMI. Put her on heparin SQ in stead -- Consult cardiology: "#1. Acute diastolic heart failure. Continue Lasix 80 mg twice a day for now. Stop metoprolol 12.5 twice a day. Start carvedilol 6.25 mg twice a day. Start isosorbide dinitrate 10 mg 3 times a day. Start hydralazine 25 mg 3 times a day. Hold jose carlos or arb for now given hyperkalemia. Consults cardiology consult cardiology ischemic heart disease. Consider Lexiscan nuclear stress test once her renal functions, potassium normalize and patient becomes more stable over the next 2-3 days. I discussed with the patient about the plan and she agrees to proceed with a Lexiscan sestamibi when she is more stable, possibly Friday. She does not want to proceed with coronary angiogram since she will be a high risk for developing the need for hemodialysis. She will need aggressive anti-HTN meds and diuretics for her diastolic HF which is a result of her chronic and uncontrolled HTN and DM. She does not have any findings so far that would suggest acute coronary syndrome. We will follow up with you after she has completed her stress test to decide on further management." Assessment #2 hyperkalemia, present on admission: -- By mouth Kayexalate 5 g is given, also expect that because of Lasix her potassium will come down in the a.m. -- avoid spironolactone. Patient is hyperkalemic on admission. -- Follow potassium level in the evening is ordered Assessment #3 acute congestive diastolic heart failure Present on admission -- Order BNP -- Lasix 80 mg IV twice a day as ordered -- Nitroglycerin, morphine, oxygen as needed -- Daily weights, accurate I&O's -- Patient is showing good output, go to maintain a goal of 1 L over her normal body output -- carvedilol, imdur, per cardiology Assesment # 4 Anemia of chronic disease: H&H dropped since admission --Iron panel, B12, folate will be ordered: IT appears nephro has already put in iron panel Assessment # 5 Diabetes type II with hyperglycemia complications -- No sliding scale insulin is ordered -- A1c, lipid panel in the a.m. (A1C=6.8), Lipid Panel WNL Assessment # 6 UTI: The patient was recently treated -- Cultures are negative so far Assessment # 7 hypertension: Elevated blood pressure present admission she did not take her meds. 8. She has received amlodipine, spironolactone in the ER -- We will continue her evening medications -- carvedilol, imdur, hydralazine per cardiology Assessment # 8 end-stage renal disease: -- Consulted nephrology, appreciate their recommendations -- Avoid renal toxic medications -- "1. I have discussed with the patient regarding renal replacement therapy. She seems unhappy about the idea of starting hemodialysis. Hence I will continue only medical management. We will continue IV Lasix 80 mg q.12 hours. I will put her on metolazone 5 mg every day. We will order urine protein creatinine ratio and urine protein electrophoresis. We will order PTH 20, vitamin D 25 and anemia workup. 2. The patient will be on low-potassium diet and low salt diet. We will order a kidney sonogram. Recommend to hold JOSE CARLOS inhibitor, ARB and potassium sparing diuretics." Disposition: She will likely need a better control of her CHF then a stress test Resuscitation Status: CPR: Attempt Resuscitation (Sr. Kathryn Castaneda is her alternate decision-maker) Time spent 40 min Naty Lopez DO March 08, 2017 08:04
[2017-03-09] VITALS (11 sets, daily range): BP systolic 131–164; BP diastolic 50–69; PULSE 64–80; RESP 16–19; O2SAT 93–96
[2017-03-09] MEDS: Sodium Chloride LOK Flush 10 mL Syringe IVFLUSH SCH ×3 (00:26→16:48)
[2017-03-09] MEDS ORDERED: Heparin 5,000 Unit/mL Inj SUBQ SCH (00:30)
--- NOTE | 2017-03-09 05:08 | NUR ---
Noc activity Pt denies chest pain, n/v or abd discomfort. Telemetry monitoring noted Sinus rhythm 70's. Reports of SOB upon activity. 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 HS meds administered as scheduled. Intentional hourly rounding in effect.
[2017-03-09] MEDS: Furosemide 10 mg/mL 10 mL Inj IVPUSH SCH (05:22)
[2017-03-09 06:54] LABS: Magnesium 1.8 mg/dL (1.6-2.6); Phosphorus 5.5 mg/dL (2.5-4.9); Unsaturated Iron Binding 112.2 ug/dL
[2017-03-09 06:55] LABS: Mean Corpuscular Hemoglobin 28.4 pg (27.0-35.0); Mean Corpuscular Volume 92.5 fL (81-100)
[2017-03-09] MEDS: Insulin LISPRO 300 Unit/3 mL Inj SUBQ SCH ×4 (08:00→22:00)
--- NOTE | 2017-03-09 10:08 | NUR ---
KAMINI signed by pt
--- NOTE | 2017-03-09 11:33 | PCM.PNCARD ---
Subjective Date of service March 09, 2017 Chief Complaint shortness of breath and leg swelling History of Present Illness This patient is a 76 year old woman with no past history of coronary artery disease that presented to the hospital with one week of increasing shortness of breath and peripheral edema. Claims prior to this she had been recovering from pneumonia in January and doing well but inking it was returning. Past medical history is significant for end-stage renal disease, type II diabetes mellitus, hyperlipidemia, hypertension, peripheral neuropathy, breast cancer. She does admit to one episode of "jaw and facial pain for approximately 30 minutes sometimes this past week. It was not associated with activity specifically. It was resolved after she "brushed her teeth" she has not had any nausea vomiting or sweats. She denies palpitations or exertional dyspnea. She does admit to exertional dyspnea only in the past week with some progression. She has not specifically noticed any changes in her weight. She is somewhat vague in describing chest pressure in general. She does admit to a "feeling in her chest" when she is short of breath. She has had multiple episodes of orthopnea waking her at night. She has recently moved back to the area from [place]. Of note she admits to a stress test for unknown reasons approximately 5 years ago while living away. We have no results at this time. She reports having an uncomfortable experience with what sounds like a pharmacologic stress test that was reportedly normal per patient. Subjective: Patient feels she is continuing to improve. She has less coughing, less shortness of breath. She notes that her leg swelling is significantly improved at this time. She denies any chest pain, palpitations, orthopnea, dizziness. She does continue to have some mild "crackling" in her ears. Denies sore throat or significant postnasal drip symptoms. Denies abdominal pain. She is still constipated. She continues to have vigorous/ appropriate response to diuretics with 4.8 kg wt loss. No other urinary complaints. Exam Vital Signs Vital Sign - Last Date Time Temp Pulse Resp B/P Pulse Ox O2 Delivery O2 Flow Rate FiO2 03/09/17 09:41 36.6 74 18 133/55 94 Room Air Intake and Output 03/08/17 03/08/17 03/09/17 Cumulative From/Thru 15:00 23:00 07:00 03/07/17 08:04 - 03/09/17 06:35 Intake Total 1100 ml 200 ml 2369 ml Output Total 2350 ml 1550 ml 7300 ml Balance -1250 ml -1350 ml -4931 ml Intake Oral 1100 ml 200 ml 2000 ml IV Total 0 ml 369 ml Output Urine Total 2350 ml 1550 ml 7300 ml # Bowel Movements 0 0 Additional Information: Gen.-patient sitting up in bed in no apparent distress. HEENT-eyes clear PERRLA pharynx mild postnasal drip no significant erythema, face symmetric. Neck-supple nontender, no lymphadenopathy. Thyroid benign. Chest-symmetrical without retraction, breathing easily. Lungs are clear to auscultation. CV-regular rate and rhythm, no rub or gallop. Soft, Systolic murmur appreciated today. Possible very faint carotid bruits left greater than right. Trace dorsalis pedis left foot nonpalpable right foot. No significant edema to the feet or ankles. Abdomen- soft nontender Integument- benign Neuro- alert and oriented 4, no focal motor deficits. Decreased sensation to light touch noted to feet bilaterally. Lab and Diagnostics Result Diagram: 03/09/1760403/09/17604 Assessment & Plan Assessment Patient is very pleasant 76-year-old female with no known prior history of coronary artery disease that presents with one week of dyspnea and peripheral edema with vague jaw pain as a discreet event. Past medical history is significant for end-stage renal disease, hypertension, hyperlipidemia, type II diabetes mellitus with peripheral neuropathy. Breast cancer. Patient presented to the hospital with CHF symptoms. Chest x-ray and echocardiogram verify heart failure findings. Echo suggests acute diastolic heart failure. Her troponins were elevated though given her end-stage renal disease and lack of previous available labs and old medical records it is difficult to know their significance. Our feeling is her CHF is most likely related to chronic kidney disease with acute on chronic renal failure and hypertension. Ischemia cannot be completely ruled out given signs of possible anteroseptal infarct on her EKG although her echocardiogram showed normal EF and did not show focal wall motion abnormalities. An ischemic workup with Lexiscan perfusion study is recommended prior to discharge. Test not recommended if electrolytes are abnormal or Hct is < 25. Problems: Plan #1. Acute diastolic heart failure. Continue Lasix 80 mg twice a day and Metolazone per nephrology recommendation. Continue carvedilol 12.25 mg twice a day, isosorbide dinitrate 10 mg 3 times a day. hydralazine 25 mg 3 times a day. Hold tyron, arb, K sparing diuretic for now given. #2. End-stage renal disease-we will defer to nephrology recommendations. #3. Hyperkalemia- hold medications that will increase potassium, tyron, arb unless renal functions improved, we may be able to introduce these medications cautiously with close monitoring. #4. Diabetes type II-management per service #5. Hypertension- continue amlodipine 10 mg daily along with above medications. BP management is currently improved. #6. Rule out ischemic heart disease. Recommend Lexiscan nuclear stress test for friday if electrolytes continue to be normal but would defer in hct is less than 25. Consider transfusion. #7. Anemia - Nephrology evaluating anemia of chronic kidney disease. May benefit from transfusion. Resuscitation Status: CPR: Attempt Resuscitation (Sr. Kathryn Castaneda is her alternate decision-maker) Time spent 30 minutes Attending Statement I have reviewed and agree with the assessment and plan for this pleasant lady. She has worsening anemia and might need GI workup if she becomes more anemic. She will eventually need an ischemic workup with Lexiscan sestamibi prior to discharge. Continue with ASA, statins, beta blockers and hold ACEi becuase of ARF. Barrett Gonzalez PA-C March 09, 2017 11:33 Primitivo Smith MD March 09, 2017 12:52 #6. Rule out ischemic heart disease. Recommend Lexiscan nuclear stress test for friday if electrolytes continue to be normal but would defer in hct is less than 25. Consider transfusion. #7. Anemia - Nephrology evaluating anemia of chronic kidney disease. May benefit from transfusion. Resuscitation Status: CPR: Attempt Resuscitation (Sr. Kathryn Castaneda is her alternate decision-maker) Barrett Gonzalez PA-C March 09, 2017 11:33
[2017-03-09] MEDS ORDERED: Furosemide 10 mg/mL 2 mL Inj IVPUSH ONE (12:20)
--- NOTE | 2017-03-09 13:42 | PCM.PNNEPH ---
Subjective Date of Service March 09, 2017 Subjective She has less difficulty breathing. She had less lower extremity swelling. She has lost almost 5 kg since the admission. Today hemoglobin dropped to 7.6. No obvious bleeding identified. Exam Vital Signs Vital Sign - Last Date Time Temp Pulse Resp B/P Pulse Ox O2 Delivery O2 Flow Rate FiO2 03/09/17 09:41 36.6 74 18 133/55 94 Room Air Intake and Output 03/08/17 03/08/17 03/09/17 Cumulative From/Thru 15:00 23:00 07:00 03/07/17 08:04 - 03/09/17 06:35 Intake Total 1100 ml 200 ml 2369 ml Output Total 2350 ml 1550 ml 7300 ml Balance -1250 ml -1350 ml -4931 ml Intake Oral 1100 ml 200 ml 2000 ml IV Total 0 ml 369 ml Output Urine Total 2350 ml 1550 ml 7300 ml # Bowel Movements 0 0 Exam General appearance: Awake, alert and oriented x3. In no acute distress. HEENT: PERRLA. Atraumatic. Moist mucous membranes. Mild pallor. No jaundice. No significant JVD. No lymphadenopathy. No thyroid gland enlargement. Heart: Regular rhythm. Normal S1, S2. Systolic murmur noted. Lungs: No rales appreciated. No wheezing. No rhonchi. Good air entry. No accessory muscle use. Abdomen: Soft, active bowel sounds. Nontender. Nondistended. No hepatosplenomegaly. Extremities: 2+ edema on the lower extremities. Lab and Diagnostics Result Diagram: 03/09/17 0603/09/17 06 X-Rays, CTs and MRIs Chest x-ray IMPRESSION: 1. Cardiomegaly with small pleural effusions and mild pulmonary edema suggesting congestive heart failure. 2. Asymmetric right infrahilar opacities consistent with atelectasis or consolidation. Dictated by: Mervin Sánchez M.D. on 03/07/2017 at 10:01 Approved by: Mervin Sánchez M.D. on 03/07/2017 at 10:06 Cardiac Echo Impressions Echocardiogram Interpretation Summary Left ventricular wall thickness is mildly increased. Left ventricular systolic function is normal without obvious focal wall motion abnormalities. The ejection fraction is estimated to be 60-65%. Assessment of diastolic parameters suggests a pseudonormalization pattern, consistent with elevated filling pressures. The right ventricle is normal in size and function. The right ventricular systolic pressure is estimated at 62 mmHg assuming a right atrial pressure of 15 mm Hg. The left atrium is mildly dilated. The right atrium is mildly dilated. There is moderate mitral regurgitation. There is moderate tricuspid regurgitation. There is no other significant valvular heart disease. The aortic root is normal size. There is a trivial pericardial effusion noted. There are no echocardiographic or Doppler indications for cardiac tamponade. Findings are consistent with acute diastolic heart failure. Plan Impression ASSESSMENT: 1. 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 2. Non-ST elevation myocardial infarction. 3. Acute diastolic heart failure. 4. Hyperkalemia. 5. Anemia of chronic kidney disease. 6. Anion gap metabolic acidosis. 7. Hypertension with hypertensive nephrosclerosis. 8. Type 2 diabetes with nephropathy. 9. Pyuria, pending for finalized urine culture. Plan: Since given acute decompensated heart failure, we will like to keep her hemoglobin above 8. If transfusion required I recommend to run over 4 hours and give IV diuretics after transfusion. We will schedule aranesp subQ to be given in the morning. Continue IV Lasix and metolazone. No urgent dialysis indicated at this moment. Josep Martin MD March 09, 2017 13:42
[2017-03-09] MEDS: 0.9% Sodium Chloride 250 ML IV SCH (13:50)
[2017-03-09] MEDS ORDERED: Furosemide 10 mg/mL 4 mL Inj IVPUSH ONE (14:55)
--- NOTE | 2017-03-09 15:20 | DRSVH ---
PROCEDURE: US RENAL SONOGRAM INDICATIONS: CKD TECHNIQUE: Real-time scanning was performed of the kidneys and bladder, with image documentation. COMPARISON: None. FINDINGS: Kidneys: Kidneys are normal in size. Right kidney measures 9.9 cm long; left kidney measures 9.7 cm long. Right renal cortical thickness is 0.9 cm; left renal cortical thickness is 0.7 cm. Renal cor tical echotexture is normal. No hydronephrosis or nephrolithiasis. No suspicious solid mass lesions . A 1.0 x 0.8 x 0.6 cm cyst is noted in the left kidney. Bladder: Pre-void bladder volume is 252 mL. Post-void residual is 54 mL. Pre-void images demonstra te no intraluminal masses or stones. On pre-void images, both ureteral jets are noted with color Dop pler interrogation. (Of note, ureteral jets may not be detectable in up to 25% of cases due to insuf ficient differences in specific gravity between ureteral and bladder urine). To-and-fro flow noted i n the left the bladder possibly due to a bladder diverticulum. Miscellaneous: No free pelvic fluid. IMPRESSION: 1. Mild renal cortical thinning compatible with history of chronic renal disease. 2. No hydronephrosis. 3. Possible left bladder diverticulum. Dictated by: Raquel Manley MD, PhD on 03/09/2017 at 15:17 Approved by: Raquel Manley MD, PhD on 03/09/2017 at 15:18
--- NOTE | 2017-03-09 16:00 | NUR ---
Blood Patient received 1 unit PRBC's. Tolerated well. Lasix given immediately after infusion per doctor order.
[2017-03-09] MEDS: Heparin 5,000 Unit/mL Inj SUBQ SCH (16:48)
[2017-03-09] MEDS: Furosemide 10 mg/mL 4 mL Inj IVPUSH SCH (22:06)
--- NOTE | 2017-03-09 23:02 | PCM.PNMED ---
Subjective Date of Service March 09, 2017 Subjective Patient is seen and examined. She is currently receiving 1 unit PRBC. She is appearing to be breathing much more comfortably, states that she no longer experiences exertional dyspnea. Dr. Smith offered her coronary angiogram, it appears that patient has declined due to concern for renal dysfunction. She says that she has had a stress test in the past, never wanted to do it again but she will one more time. She expresses no other concerns. Exam Vital Signs Vital Sign - Last Date Time Temp Pulse Resp B/P Pulse Ox O2 Delivery O2 Flow Rate FiO2 03/09/17 05:29 71 03/09/17 04:38 36.3 18 149/69 96 Room Air Intake and Output 03/08/17 03/08/17 03/09/17 Cumulative From/Thru 15:00 23:00 07:00 03/07/17 08:04 - 03/09/17 06:35 Intake Total 1100 ml 200 ml 2369 ml Output Total 2350 ml 1550 ml 7300 ml Balance -1250 ml -1350 ml -4931 ml Intake Oral 1100 ml 200 ml 2000 ml IV Total 0 ml 369 ml Output Urine Total 2350 ml 1550 ml 7300 ml # Bowel Movements 0 0 Exam General: NAD, sitting up in bed eating supper HEENT: NCAT, Eyes: [place] conjunctivae. No ptosis, PERRL Neck: No masses, trachea midline, no thyromegaly Lungs: CTA with normal respiratory effort, no crackles or wheezes CV: RRR, soft systolic murmurs/no rubs/no gallops, normal PMI GI: Soft, non-tender with no hepatosplenomegaly MSK: Normal gait and station, no digital cyanosis Skin: Warm and dry. No rash, lesions or ulcers Psych: A&O X3, with appropriate affect Neuro: No focal deficits IVs and Medications IV Fluids None she did receive 1 unit of PRBC followed by 40 mg of IV Lasix Medications Reviewed: Medications were reviewed in detail Lab and Diagnostics Result Diagram: 03/09/1760403/09/17604 X-Rays, CTs and MRIs Chest x-ray IMPRESSION: 1. Cardiomegaly with small pleural effusions and mild pulmonary edema suggesting congestive heart failure. 2. Asymmetric right infrahilar opacities consistent with atelectasis or consolidation. Dictated by: Mervin Sánchez M.D. on 03/07/2017 at 10:01 Approved by: Mervin Sánchez M.D. on 03/07/2017 at 10:06 Cardiac Echo Impressions Echocardiogram Interpretation Summary Left ventricular wall thickness is mildly increased. Left ventricular systolic function is normal without obvious focal wall motion abnormalities. The ejection fraction is estimated to be 60-65%. Assessment of diastolic parameters suggests a pseudonormalization pattern, consistent with elevated filling pressures. The right ventricle is normal in size and function. The right ventricular systolic pressure is estimated at 62 mmHg assuming a right atrial pressure of 15 mm Hg. The left atrium is mildly dilated. The right atrium is mildly dilated. There is moderate mitral regurgitation. There is moderate tricuspid regurgitation. There is no other significant valvular heart disease. The aortic root is normal size. There is a trivial pericardial effusion noted. There are no echocardiographic or Doppler indications for cardiac tamponade. Findings are consistent with acute diastolic heart failure. Assessment & Plan This is a pleasant 76-year-old female with a past medical history of diabetes mellitus, hypertension, hyperlipidemia, heart disease, end-stage renal disease currently not on dialysis presenting due to her tachycardia and dyspnea. Her troponin is significantly elevated without ST elevation suggesting possibility of a non-STEMI sometime within the last few days as the reason for the worsening orthopnea. Dr. Smith was consulted in the ER, he Recommends to start heperin drip until we can get everything sorted out. Assessment #1 Acute on chronic congestive diastolic heart failure, Present on admission: Elevated BNP and CXR, clinical presentation -- Lasix 80 mg IV twice a day as ordered at the time of admission, changed to Lasix 40 mg Q8H on 03/09 due to adequate response and I&O goal -- Nitroglycerin, morphine, oxygen as needed -- Daily weights, accurate I&O's -- Patient is showing good output, go to maintain a goal of 1 L over her normal body output -- amlodipine, carvedilol, imdur, per cardiology -- Metolazone per nephro Assessment #2 Elevated troponins, and NSTEMI: Ruled out per Dr. Smith -- Trend troponins: Troponins remained fairly stable around .16-0.17. Thought to be due to poor renal function vs. CHF -- Echocardiogram: As ordered and performed Dr. Smith says that he read the echo himself and has seen findings that are nonfocal, he does not feel this is a MS. He recommends that we wait till her CHF that was done and a stress test on 03/11. "There is moderate mitral regurgitation. There is moderate tricuspid regurgitation.", 60-65% EF, diastolic filling dysfunction also reported" -- A1c lipid panel in the a.m. 6.8 -- optimize therapy with beta juan m and statin: Avoid renal toxic medications such as lisinopril, spironolactone: -- When necessary nitroglycerin, morphine, oxygen -- Telemonitoring -- Heparin drip discontinued after discussing with cardiology as she is not considered to be STEMI/NSTEMI. Put her on heparin SQ in stead -- Consult cardiology: "#1. Acute diastolic heart failure. Continue Lasix 80 mg twice a day for now. Stop metoprolol 12.5 twice a day. Start carvedilol 6.25 mg twice a day. Start isosorbide dinitrate 10 mg 3 times a day. Start hydralazine 25 mg 3 times a day. Hold jose carlos or arb for now given hyperkalemia. Consults cardiology consult cardiology ischemic heart disease. Consider Lexiscan nuclear stress test once her renal functions, potassium normalize and patient becomes more stable over the next 2-3 days. I discussed with the patient about the plan and she agrees to proceed with a Lexiscan sestamibi when she is more stable, possibly Friday. She does not want to proceed with coronary angiogram since she will be a high risk for developing the need for hemodialysis. She will need aggressive anti-HTN meds and diuretics for her diastolic HF which is a result of her chronic and uncontrolled HTN and DM. She does not have any findings so far that would suggest acute coronary syndrome. We will follow up with you after she has completed her stress test to decide on further management." Assessment #3 Hyperkalemia, present on admission: -- She was given by mouth Kayexalate at the time of admission, potassium is currently stable -- avoid spironolactone. Patient is hyperkalemic on admission. Assesment # 4 Anemia of chronic disease: H&H dropped since admission -- Iron panel showed anemia of chronic disease. -- Nephro will give anaresp 03/10 -- The patient's H&H dropped below 8, cardiology does not take her for stress with a hematocrit less than 25 . We transfused her with 1 unit of PRBC followed by 40 milligrams IV Lasix. She tolerated the transfusion well. -- Continue to monitor Assessment # 5 Diabetes type II with hyperglycemia complications. She takes glipizide at home as well as 10 units of Lantus -- Hold home meds, as she has not been needing them here -- Sliding scale insulin is ordered -- A1c, lipid panel in the a.m. (A1C=6.8), Lipid Panel WNL Assessment # 6 UTI: The patient was recently treated -- Cultures are negative so far Assessment # 7 Hypertension: Elevated blood pressure present admission she did not take her meds. She has received amlodipine, spironolactone in the ER -- We will continue her evening medications -- continue amlodipine -- carvedilol, imdur, hydralazine per cardiology -- Metolazone per nephro -- Avoid nephrotoxic medications Assessment # 8 end-stage renal disease: -- Consulted nephrology, appreciate their recommendations -- Avoid renal toxic medications -- US retroperitoneal: Mild renal cortical thinning compatible with history of chronic renal disease.Possible left bladder diverticulum. -- "1. I have discussed with the patient regarding renal replacement therapy. She seems unhappy about the idea of starting hemodialysis. Hence I will continue only medical management. We will continue IV Lasix 80 mg q.12 hours. I will put her on metolazone 5 mg every day. We will order urine protein creatinine ratio and urine protein electrophoresis. We will order PTH 20, vitamin D 25 and anemia workup. 2. The patient will be on low-potassium diet and low salt diet. We will order a kidney sonogram. Recommend to hold JOSE CARLOS inhibitor, ARB and potassium sparing diuretics." -- "Since given acute decompensated heart failure, we will like to keep her hemoglobin above 8. If transfusion required I recommend to run over 4 hours and give IV diuretics after transfusion. We will schedule aranesp subQ to be given in the morning. Continue IV Lasix and metolazone. No urgent dialysis indicated at this moment." Disposition: She will likely need a better control of her CHF then a stress test prior to d/c likely in 2-3 days Resuscitation Status: CPR: Attempt Resuscitation (Sr. Kathryn Castaneda is her alternate decision-maker) Time spent 30 min spent reviewing consult notes, discussing the recommendations with the specialists, interviewing and examining the patient, managing the patient. Naty Lopez DO March 09, 2017 08:19
[2017-03-10] VITALS (9 sets, daily range): BP systolic 125–152; BP diastolic 49–63; PULSE 60–81; RESP 18–20; O2SAT 93–97
[2017-03-10] MEDS: Sodium Chloride LOK Flush 10 mL Syringe IVFLUSH SCH ×3 (00:47→16:24)
[2017-03-10] MEDS: Heparin 5,000 Unit/mL Inj SUBQ SCH ×3 (00:47→16:24)
--- NOTE | 2017-03-10 05:39 | NUR ---
Noc activity Pt denies chest pain. Reports of sob upon activity and exertion. Denies n/v or abd discomfort. VSS and has been afebrile. HS meds administered as scheduled. Intentional hourly rounding done and pt has slept most of the night.
[2017-03-10] MEDS: Furosemide 10 mg/mL 4 mL Inj IVPUSH SCH ×3 (05:46→22:00)
[2017-03-10 06:45] LABS: Mean Corpuscular Volume 89.7 fL (81-100)
[2017-03-10 06:46] LABS: Mean Corpuscular Hemoglobin 29.5 pg (27.0-35.0)
[2017-03-10] MEDS: Insulin LISPRO 300 Unit/3 mL Inj SUBQ SCH ×4 (08:00→22:00)
--- NOTE | 2017-03-10 11:08 | PCM.PNNEPH ---
Subjective Date of Service March 10, 2017 Subjective He was seen today in [facility] early reviewed her chart including Dr. Kowalski's consultation. She has a history of what appears to be stage IV chronic kidney disease most likely secondary to diabetic and hypertensive renal disease. She was seen by Dr. Perez in [place] about a month ago for this. She has a long- standing history of diabetes which has been complicated by diabetic retinopathy. She has an anemia which appears to be from chronic kidney disease and is already received 1 dose of Aranesp. She presented with an end STEMI and at times admission her creatinine was 3.01. Since admission she has been aggressively diuresed and is had some wide fluctuations in her blood pressure. Her creatinine this morning is 3.76. She denies any headache, chest pain, shortness of breath, cough, wheezing, nausea or vomiting In the last 24 hours she has had 2270 3N and 2700 out. Morning her sodium is 137, potassium 4.9, chloride of 100, bicarbonate 21, BUN/creatinine were 80 and 3.76 respectively. Exam Vital Signs Vital Sign - Last Date Time Temp Pulse Resp B/P Pulse Ox O2 Delivery O2 Flow Rate FiO2 03/10/17 09:50 81 03/10/17 09:36 36.7 18 152/54 93 Room Air Intake and Output 03/09/17 03/09/17 03/10/17 Cumulative From/Thru 15:00 23:00 07:00 03/07/17 08:04 - 03/10/17 06:51 Intake Total 2073 ml 428 ml 4870 ml Output Total 1150 ml 1200 ml 9650 ml Balance 923 ml -772 ml -4780 ml Intake Oral 1172 ml 400 ml 3572 ml IV Total 616 ml 28 ml 1013 ml Packed Cells 285 ml 285 ml Output Urine Total 1150 ml 1200 ml 9650 ml # Bowel Movements 0 0 0 Exam HEENT examination is remarkable for pale sclera. Neck is supple without adenopathy, thyromegaly, or jugular venous distention. Lungs are clear to auscultation though somewhat diminished. Heart is regular and rhythmical with a soft systolic murmur. Abdomen is soft without any tenderness rebound guarding masses or hepatosplenomegaly. Extremities do not show any evidence of any clubbing, cyanosis, or edema. Skin turgor is good. Lab and Diagnostics Result Diagram: 03/10/17 0612 03/10/17 0612 X-Rays, CTs and MRIs Chest x-ray IMPRESSION: 1. Cardiomegaly with small pleural effusions and mild pulmonary edema suggesting congestive heart failure. 2. Asymmetric right infrahilar opacities consistent with atelectasis or consolidation. Dictated by: Mervin Sánchez M.D. on 03/07/2017 at 10:01 Approved by: Mervin Sánchez M.D. on 03/07/2017 at 10:06 Cardiac Echo Impressions Echocardiogram Interpretation Summary Left ventricular wall thickness is mildly increased. Left ventricular systolic function is normal without obvious focal wall motion abnormalities. The ejection fraction is estimated to be 60-65%. Assessment of diastolic parameters suggests a pseudonormalization pattern, consistent with elevated filling pressures. The right ventricle is normal in size and function. The right ventricular systolic pressure is estimated at 62 mmHg assuming a right atrial pressure of 15 mm Hg. The left atrium is mildly dilated. The right atrium is mildly dilated. There is moderate mitral regurgitation. There is moderate tricuspid regurgitation. There is no other significant valvular heart disease. The aortic root is normal size. There is a trivial pericardial effusion noted. There are no echocardiographic or Doppler indications for cardiac tamponade. Findings are consistent with acute diastolic heart failure. Plan Impression Impression #1 acute on chronic kidney injury secondary to cardiac decompensation , fluctuations in blood pressure, and possible overdiuresis. #2 chronic kidney disease stage IV secondary to diabetic renal disease #4 hypertension with hypertensive heart disease and hypertensive nephrosclerosis #5 anemia secondary to chronic kidney disease. Recommendations #1 I agree with holding her diuretics for at least a day or 2 and see if he can get some improvement in her renal function. We also need to stabilize her blood pressure. I will go ahead and discontinue metolazone. Laz Beck DO March 10, 2017 11:07
[2017-03-10] MEDS ORDERED: Darbepoetin Alfa 60 mCg/0.3 mL Inj SUBQ ONE (12:00)
[2017-03-10 12:10] LABS: Vitamin D, 25-Hydroxy 16.1 ng/mL (30.0-100.0)
[2017-03-10] MEDS: 0.9% Sodium Chloride 250 ML IV SCH (12:20)
--- NOTE | 2017-03-10 14:23 | NUR ---
SW - Readiness for Discharge Data: Pt is on day 3 of hospitalization for CHF, N Stemi. EMR reviewed. Per morning rounds pt is not medically ready to discharge and will likely discharge tomorrow pending results of stress test. Pt is from home alone and will likely discharge home via sister in POV when medically ready. No needs assessed at this time. SW will continue to follow. Assessment: Pt who is independent at baseline. Plan: Pt likely to discharge home tomorrow via POV pending results of stress test. No further needs assessed. SW will continue to follow. KATHARINE Wade
--- NOTE | 2017-03-10 18:23 | PCM.PNMED ---
Subjective Date of Service March 10, 2017 Subjective Denies any new issues/complaints. says breathing much improved compared to admission. Exam Vital Signs Vital Sign - Last Date Time Temp Pulse Resp B/P Pulse Ox O2 Delivery O2 Flow Rate FiO2 03/10/17 16:22 66 146/57 03/10/17 14:25 36.6 20 97 Room Air Intake and Output 03/09/17 03/09/17 03/10/17 Cumulative From/Thru 15:00 23:00 07:00 03/07/17 08:04 - 03/10/17 06:51 Intake Total 2073 ml 428 ml 4870 ml Output Total 1150 ml 1200 ml 9650 ml Balance 923 ml -772 ml -4780 ml Intake Oral 1172 ml 400 ml 3572 ml IV Total 616 ml 28 ml 1013 ml Packed Cells 285 ml 285 ml Output Urine Total 1150 ml 1200 ml 9650 ml # Bowel Movements 0 0 0 General: Alert, Oriented X3, Cooperative, No Acute Distress Head: Normal Eyes: Scleral Anicteric Mouth: Mucous Membr Moist/[place] Neck: Supple Chest & Lungs: Clear to auscultation & percussion Cardiovascular: Regular Rate/Rhythm Pulses: NL carotid, radial, femoral, DP, PT Abdomen: Non-tender Extremities: No cyanosis/clubbing/edma bilat Neurological: Grossly Neurologically Intact, Normal Speech IVs and Medications Medications Reviewed: Medications were reviewed in detail Lab and Diagnostics Result Diagram: 03/10/1761103/10/17611 X-Rays, CTs and MRIs Chest x-ray IMPRESSION: 1. Cardiomegaly with small pleural effusions and mild pulmonary edema suggesting congestive heart failure. 2. Asymmetric right infrahilar opacities consistent with atelectasis or consolidation. Dictated by: Mervin Sánchez M.D. on 03/07/2017 at 10:01 Approved by: Mervin Sánchez M.D. on 03/07/2017 at 10:06 Cardiac Echo Impressions Echocardiogram Interpretation Summary Left ventricular wall thickness is mildly increased. Left ventricular systolic function is normal without obvious focal wall motion abnormalities. The ejection fraction is estimated to be 60-65%. Assessment of diastolic parameters suggests a pseudonormalization pattern, consistent with elevated filling pressures. The right ventricle is normal in size and function. The right ventricular systolic pressure is estimated at 62 mmHg assuming a right atrial pressure of 15 mm Hg. The left atrium is mildly dilated. The right atrium is mildly dilated. There is moderate mitral regurgitation. There is moderate tricuspid regurgitation. There is no other significant valvular heart disease. The aortic root is normal size. There is a trivial pericardial effusion noted. There are no echocardiographic or Doppler indications for cardiac tamponade. Findings are consistent with acute diastolic heart failure. Assessment & Plan 76-year-old female with no known prior history of coronary artery disease that presents with one week of dyspnea and peripheral edema with vague jaw pain. Past medical history is significant for end-stage renal disease, hypertension, hyperlipidemia, type II diabetes mellitus with peripheral neuropathy and breast cancer. Patient presented to the hospital with CHF symptoms. Chest x-ray and echocardiogram verify heart failure findings. Echo suggests acute diastolic heart failure. # Acute on chronic congestive diastolic heart failure, Present on admission: Elevated BNP and CXR, clinical presentation - Lasix 80 mg IV twice a day as ordered at the time of admission, changed to Lasix 40 mg Q8H on 03/09 due to adequate response and I&O goal - Nitroglycerin, IV morphine, oxygen as needed. Daily weights, accurate I&O's - Appreciate cardiology and nephrology consults. Will followup with recommendations - Continue with current medications and diuresis # Elevated Troponin, present on admission. - Unclear if acute NSTEMI vs acute demand ischemia and amplified by underlying kidney disease - Appreciate cardiology consult. Will followup with recs - Rule out ischemic heart disease with Lexiscan nuclear stress test planned for tomorrow # Acute hyperkalemia, present on admission. Resolved. - Post treatment with Kayexalate at the time of admission - Followup # Anemia of chronic disease with acute exacerbation. present on admission. - Post Aranesp on 03/10 per nephrology - Post 1 unit of PRBC transfusion - Followup h/h # Diabetes type II with hyperglycemia complications. She takes glipizide at home as well as 10 units of Lantus - Continue sliding scale insulin - HgA1C 6.8 - Hold oral medications # Suspected acute UTI on admission ruled out with negative cultures. # Hypertension, chronic. currently stable. - Continue with current meds # End-stage renal disease - Appreciate nephrology consult. Will followup with recommendations. - Continue with Metolazone - Given acute decompensated heart failure, keep hemoglobin above 8. - No urgent dialysis indicated at this moment Disposition: 1-2 days pending further cardiac workup and recommendations Resuscitation Status: CPR: Attempt Resuscitation (Sr. Kathryn Castaneda is her alternate decision-maker) Donovan Haneyoud March 10, 2017 18:23 I will continue only medical management. We will continue IV Lasix 80 mg q.12 hours. I will put her on metolazone 5 mg every day. We will order urine protein creatinine ratio and urine protein electrophoresis. We will order PTH 20, vitamin D 25 and anemia workup. 2. The patient will be on low-potassium diet and low salt diet. We will order a kidney sonogram. Recommend to hold JOSE CARLOS inhibitor, ARB and potassium sparing diuretics." -- "Since given acute decompensated heart failure, we will like to keep her hemoglobin above 8. If transfusion required I recommend to run over 4 hours and give IV diuretics after transfusion. We will schedule aranesp subQ to be given in the morning. Continue IV Lasix and metolazone. No urgent dialysis indicated at this moment." Disposition: She will likely need a better control of her CHF then a stress test prior to d/c likely in 2-3 days Resuscitation Status: CPR: Attempt Resuscitation (Sr. Kathryn Castaneda is her alternate decision-maker) Tin Haney March 10, 2017 18:23 chronic renal disease.Possible left bladder diverticulum. -- "1. I have discussed with the patient regarding renal replacement therapy. She seems unhappy about the idea of starting hemodialysis. Hence I will continue only medical management. We will continue IV Lasix 80 mg q.12 hours. I will put her on metolazone 5 mg every day. We will order urine protein creatinine ratio and urine protein electrophoresis. We will order PTH 20, vitamin D 25 and anemia workup. 2. The patient will be on low-potassium diet and low salt diet. We will order a kidney sonogram. Recommend to hold JOSE CARLOS inhibitor, ARB and potassium sparing diuretics." -- "Since given acute decompensated heart failure, we will like to keep her hemoglobin above 8. If transfusion required I recommend to run over 4 hours and give IV diuretics after transfusion. We will schedule aranesp subQ to be given in the morning. Continue IV Lasix and metolazone. No urgent dialysis indicated at this moment." Disposition: She will likely need a better control of her CHF then a stress test prior to d/c likely in 2-3 days Resuscitation Status: CPR: Attempt Resuscitation (Sr. Kathryn Castaneda is her alternate decision-maker) Tin Haney March 10, 2017 18:23
[2017-03-11] VITALS (10 sets, daily range): BP systolic 106–153; BP diastolic 43–79; PULSE 62–75; RESP 16–20; O2SAT 91–97
[2017-03-11] MEDS: Sodium Chloride LOK Flush 10 mL Syringe IVFLUSH SCH ×3 (00:56→17:05)
[2017-03-11] MEDS: Heparin 5,000 Unit/mL Inj SUBQ SCH ×3 (00:56→17:18)
--- NOTE | 2017-03-11 05:31 | NUR ---
NOC activity Pt denies chest pain. Noted pt having sob upon exertion. Currently on RA and has been rolerating well. Denies n/v or abd discomfort. Pt has been on NPO since midnight for the upcoming stress test. HS lasix and morning will be held per MD's order. Hourly rounding in effect VSS and has been afebrile.
[2017-03-11] MEDS: Furosemide 10 mg/mL 4 mL Inj IVPUSH SCH (06:00)
[2017-03-11 06:21] LABS: Mean Corpuscular Hemoglobin 29.4 pg (27.0-35.0); Mean Corpuscular Volume 89.4 fL (81-100)
[2017-03-11] MEDS: Insulin LISPRO 300 Unit/3 mL Inj SUBQ SCH ×4 (08:00→21:51)
[2017-03-11 08:18] LABS: Vitamin B12 431 pg/mL (211-946)
--- NOTE | 2017-03-11 10:31 | PCM.PNNEPH ---
Subjective Date of Service March 11, 2017 Subjective The patient's renal function continues to worsen. Her intake and output last 24 -hour shows she is 82 and 64 when and 2600 out. Out. She had consistently more urine output since admission. In addition with improvement in her volume status her blood pressure has dropped and I feel that both of these factors have added to her acute on chronic kidney injury. Echocardiogram shows ejection fraction of 6065% with increased right ventricular pressures and a pseudonormalization pattern in her left ventricle consistent with diastolic dysfunction/diastolic heart failure. She denies any chest pain, SOB, nausea, vomiting, or diaphoresis. Exam Vital Signs Vital Sign - Last Date Time Temp Pulse Resp B/P Pulse Ox O2 Delivery O2 Flow Rate FiO2 03/11/17 09:21 36.6 69 20 131/55 96 Room Air Intake and Output 03/10/17 03/10/17 03/11/17 Cumulative From/Thru 15:00 23:00 07:00 03/07/17 08:04 - 03/11/17 06:26 Intake Total 1436 ml 0 ml 6306 ml Output Total 1400 ml 20875 ml Balance 36 ml 0 ml -4744 ml Intake Oral 1436 ml 5008 ml IV Total 0 ml 1013 ml Packed Cells 285 ml Output Urine Total 1400 ml 51476 ml # Bowel Movements 1 1 Exam HEENT examination is remarkable for pale sclera. Neck is supple without adenopathy, thyromegaly, or jugular venous distention. Lungs show some scattered end expiratory wheezes in both lung tobias but no rales were noted. Heart was regular and rhythmical with a soft systolic murmur. Abdomen is soft without any tenderness rebound guarding masses or hepatosplenomegaly. Extremities without any evidence of any clubbing, cyanosis, or edema. Skin turgor is good. Lab and Diagnostics Result Diagram: 03/11/17 0555 03/11/17 0555 X-Rays, CTs and MRIs Chest x-ray IMPRESSION: 1. Cardiomegaly with small pleural effusions and mild pulmonary edema suggesting congestive heart failure. 2. Asymmetric right infrahilar opacities consistent with atelectasis or consolidation. Dictated by: Mervin Sánchez M.D. on 03/07/2017 at 10:01 Approved by: Mervin Sánchez M.D. on 03/07/2017 at 10:06 Cardiac Echo Impressions Echocardiogram Interpretation Summary Left ventricular wall thickness is mildly increased. Left ventricular systolic function is normal without obvious focal wall motion abnormalities. The ejection fraction is estimated to be 60-65%. Assessment of diastolic parameters suggests a pseudonormalization pattern, consistent with elevated filling pressures. The right ventricle is normal in size and function. The right ventricular systolic pressure is estimated at 62 mmHg assuming a right atrial pressure of 15 mm Hg. The left atrium is mildly dilated. The right atrium is mildly dilated. There is moderate mitral regurgitation. There is moderate tricuspid regurgitation. There is no other significant valvular heart disease. The aortic root is normal size. There is a trivial pericardial effusion noted. There are no echocardiographic or Doppler indications for cardiac tamponade. Findings are consistent with acute diastolic heart failure. Plan Impression Impression #1 acute decompensated diastolic heart failure #2 acute on chronic kidney injury secondary to #1 #3 baseline chronic kidney disease stage IV #5 diabetic nephropathy #6 hypertension with hypertensive heart disease to hypertensive nephrosclerosis with acute congestive heart failure #5 anemia secondary to chronic kidney disease. Recommendations #1 in light of her diastolic dysfunction I would like to hold her diuretics for at least several days to give her body a chance to equilibrate.. I would like to continue to follow her intake, I will put, and all laboratory parameters. Laz Beck DO March 11, 2017 10:31 Laz Beck DO March 11, 2017 10:31
[2017-03-11] MEDS: 0.9% Sodium Chloride 250 ML IV SCH (12:20)
--- NOTE | 2017-03-11 17:15 | PCM.PNMED ---
Subjective Date of Service March 11, 2017 Subjective Denies any new issues/complaints. Exam Vital Signs Vital Sign - Last Date Time Temp Pulse Resp B/P Pulse Ox O2 Delivery O2 Flow Rate FiO2 03/11/17 13:38 62 16 153/79 94 03/11/17 09:21 36.6 Room Air Intake and Output 03/10/17 03/10/17 03/11/17 Cumulative From/Thru 15:00 23:00 07:00 03/07/17 08:04 - 03/11/17 06:26 Intake Total 1436 ml 0 ml 6306 ml Output Total 1400 ml 24942 ml Balance 36 ml 0 ml -4744 ml Intake Oral 1436 ml 5008 ml IV Total 0 ml 1013 ml Packed Cells 285 ml Output Urine Total 1400 ml 15326 ml # Bowel Movements 1 1 Exam General: Alert, Oriented X3, Cooperative, No Acute Distress Head: Normal Eyes: Scleral Anicteric Mouth: Mucous Membr Moist/[place] Neck: Supple Chest & Lungs: Clear to auscultation bilat Cardiovascular: Regular Rate/Rhythm Pulses: NL carotid, radial, femoral, DP, PT Abdomen: Non-tender Extremities: No cyanosis/clubbing/edema bilat Neurological: Grossly Neurologically Intact, Normal Speech IVs and Medications Medications Reviewed: Medications were reviewed in detail Lab and Diagnostics Result Diagram: 03/11/1755 03/11/1755 X-Rays, CTs and MRIs Chest x-ray IMPRESSION: 1. Cardiomegaly with small pleural effusions and mild pulmonary edema suggesting congestive heart failure. 2. Asymmetric right infrahilar opacities consistent with atelectasis or consolidation. Dictated by: Mervin Sánchez M.D. on 03/07/2017 at 10:01 Approved by: Mervin Sánchez M.D. on 03/07/2017 at 10:06 Cardiac Echo Impressions Echocardiogram Interpretation Summary Left ventricular wall thickness is mildly increased. Left ventricular systolic function is normal without obvious focal wall motion abnormalities. The ejection fraction is estimated to be 60-65%. Assessment of diastolic parameters suggests a pseudonormalization pattern, consistent with elevated filling pressures. The right ventricle is normal in size and function. The right ventricular systolic pressure is estimated at 62 mmHg assuming a right atrial pressure of 15 mm Hg. The left atrium is mildly dilated. The right atrium is mildly dilated. There is moderate mitral regurgitation. There is moderate tricuspid regurgitation. There is no other significant valvular heart disease. The aortic root is normal size. There is a trivial pericardial effusion noted. There are no echocardiographic or Doppler indications for cardiac tamponade. Findings are consistent with acute diastolic heart failure. Assessment & Plan 76-year-old female with no known prior history of coronary artery disease that presents with one week of dyspnea and peripheral edema with vague jaw pain. Past medical history is significant for end-stage renal disease, hypertension, hyperlipidemia, type II diabetes mellitus with peripheral neuropathy and breast cancer. Patient presented to the hospital with CHF symptoms. Chest x-ray and echocardiogram verify heart failure findings. Echo suggests acute diastolic heart failure. # Acute on chronic congestive diastolic heart failure, Present on admission: Elevated BNP and CXR, clinical presentation - Lasix 80 mg IV twice a day as ordered at the time of admission, changed to Lasix 40 mg Q8H on 03/09 - Currently diuresis on hold per nephrology - Nitroglycerin, IV morphine, oxygen as needed. Daily weights, accurate I&O's - Appreciate cardiology and nephrology consults. Will followup with recommendations # Elevated Troponin, present on admission. - Unclear if acute NSTEMI vs acute demand ischemia and amplified by underlying kidney disease - Appreciate cardiology consult. Will followup with recs - Rule out ischemic heart disease with Lexiscan nuclear stress test planned for today # Acute hyperkalemia, present on admission. Resolved. - Post treatment with Kayexalate at the time of admission - Followup # Anemia of chronic disease with acute exacerbation. present on admission. - Post Aranesp on 03/10 per nephrology - Post 1 unit of PRBC transfusion - Followup h/h # Diabetes type II with hyperglycemia complications. She takes glipizide at home as well as 10 units of Lantus - Continue sliding scale insulin - HgA1C 6.8 - Hold oral medications # Suspected acute UTI on admission ruled out with negative cultures. # Hypertension, chronic. currently stable. - Continue with current meds # End-stage renal disease - Appreciate nephrology consult. Will followup with recommendations. - Given acute decompensated heart failure, keep hemoglobin above 8. - No urgent dialysis indicated at this moment Disposition: 1-2 days pending further cardiac workup and recommendations Resuscitation Status: CPR: Attempt Resuscitation (Sr. Kathryn Castaneda is her alternate decision-maker) Tin Haney March 11, 2017 17:15
--- NOTE | 2017-03-11 18:08 | NUR ---
Activity Pt continues to have SOB with exertion, denies dyspnea at rest. She is a SBA in her room, getting up to use the bathroom. She denies pain. Cardiac meds held in AM as pt was having a stress test in afternoon, per nuclear med.
--- NOTE | 2017-03-11 19:30 | DRSVH ---
PROCEDURE: ONE DAY PHARMACOLOGICAL STRESS TEST Rest and pharmacological stress myocardial perfusion SPECT with gated imaging and ejection fraction RADIOPHARMACEUTICAL: 11.2 mCi Tc-99m tetrofosmin IV at rest and 31.7 mCi Tc-99m tetrofosmin IV at pe ak effect of pharmacological stress. A [id number] was performed. INDICATIONS: CHEST PAIN TECHNIQUE: Radiopharmaceutical was injected at peak stress test, and also at rest. SPECT images wer e obtained. SPECT myocardial perfusion images were displayed in short axis, horizontal long axis, an d vertical long axis views. Gated images were reviewed using [employer] software. COMPARISON: None. CARDIAC STRESS: A pharmacologic stress test was performed under the supervision of attending staff u sing an infusion of Lexiscan. Hemodynamic Data: There is normal blood pressure and heart rate response to pharmacologic stress. Symptoms: The patient denied anginal chest pain. Aminophylline: 100 mg of aminophylline was given. EKG: No diagnostic changes of ischemia; no ectopy. FINDINGS: Raw Data: There is good myocardial uptake of radiotracer. No significant motion artifacts. Left Ventricle Function: Gated images demonstrate normal left ventricular wall thickening. No segme ntal wall motion abnormalities. No transient ischemic dilation. Left ventricular resting end diasto lic volume is 117 mL. Left ventricle stress ejection fraction is 50%; normal range is above 45%. Myocardial Perfusion: There is normal distribution of activity in the right and left ventricular scotty cardium. No fixed or reversible perfusion defects. IMPRESSION: 1. No chest pain. 2. No electrocardiogram changes. 3. No areas of ischemia identified. 4. Normal wall motion and ejection fraction. Dictated by: Leonel Samayoa M.D. on 03/11/2017 at 16:42 Transcribed by: STIVEN on 03/11/2017 at 22:30 Approved by: Leonel Samayoa M.D. on 04/01/2017 at 10:40
[2017-03-12] VITALS (10 sets, daily range): BP systolic 115–144; BP diastolic 52–69; PULSE 61–68; RESP 16–20; O2SAT 95–96
[2017-03-12] MEDS: Sodium Chloride LOK Flush 10 mL Syringe IVFLUSH SCH ×3 (00:29→17:23)
[2017-03-12] MEDS: Heparin 5,000 Unit/mL Inj SUBQ SCH ×3 (00:29→17:22)
--- NOTE | 2017-03-12 05:37 | NUR ---
Shift Notation: Pt stable throughout the night in a NSR with an IVCD; HR in the 60s. SOB upon exertion noted when pt assisted up to the BR to void. Otherwise, no complaints per pt. Will cont. to monitor.
[2017-03-12 06:34] LABS: Mean Corpuscular Volume 89.5 fL (81-100)
[2017-03-12] MEDS: Insulin LISPRO 300 Unit/3 mL Inj SUBQ SCH ×4 (08:14→21:28)
--- NOTE | 2017-03-12 14:06 | PCM.PNNEPH ---
Subjective Date of Service March 12, 2017 Subjective The patient has a slight improvement in her renal function however I feel that she is using her abdomen very close to end-stage renal disease. In questioning the patient she states that several years ago she was seen by doctor of audiology in [place] and and at that time was told she had advanced kidney disease. Her blood pressure has been much better and her intake and output the last 24 hours were 236 and 1525 out. She denies any headache, chest pain, shortness of breath , cough, wheezing, nausea or vomiting. Her hemoglobin is 9.1, potassium 4.8, sodium 136, chloride of 98, bicarbonate 21, BUN and creatinine were 104.3 which is a slight improvement. Exam Vital Signs Vital Sign - Last Date Time Temp Pulse Resp B/P Pulse Ox O2 Delivery O2 Flow Rate FiO2 03/12/17 13:26 36.5 62 18 131/57 95 Room Air Intake and Output 03/11/17 03/11/17 03/12/17 Cumulative From/Thru 15:00 23:00 07:00 03/07/17 08:04 - 03/12/17 05:59 Intake Total 200 ml 36 ml 700 ml 7242 ml Output Total 675 ml 850 ml 400 ml 87866 ml Balance -475 ml -814 ml 300 ml -5733 ml Intake Oral 200 ml 36 ml 700 ml 5944 ml IV Total 1013 ml Packed Cells 285 ml Output Urine Total 675 ml 850 ml 400 ml 96827 ml # Bowel Movements 1 1 3 Exam HEENT examination was remarkable for pale sclera. Neck is supple without adenopathy, thyromegaly, or jugular venous distention. Lungs are clear to auscultation. Heart is regular with medical with a soft systolic murmur. Abdomen soft and tenderness rebound guarding masses or hepatosplenomegaly. Extremities evidence of any clubbing, cyanosis, or edema. Lab and Diagnostics Result Diagram: 03/12/17 0545 03/12/17 0545 X-Rays, CTs and MRIs Chest x-ray IMPRESSION: 1. Cardiomegaly with small pleural effusions and mild pulmonary edema suggesting congestive heart failure. 2. Asymmetric right infrahilar opacities consistent with atelectasis or consolidation. Dictated by: Mervin Sánchez M.D. on 03/07/2017 at 10:01 Approved by: Mervin Sánchez M.D. on 03/07/2017 at 10:06 Cardiac Echo Impressions Echocardiogram Interpretation Summary Left ventricular wall thickness is mildly increased. Left ventricular systolic function is normal without obvious focal wall motion abnormalities. The ejection fraction is estimated to be 60-65%. Assessment of diastolic parameters suggests a pseudonormalization pattern, consistent with elevated filling pressures. The right ventricle is normal in size and function. The right ventricular systolic pressure is estimated at 62 mmHg assuming a right atrial pressure of 15 mm Hg. The left atrium is mildly dilated. The right atrium is mildly dilated. There is moderate mitral regurgitation. There is moderate tricuspid regurgitation. There is no other significant valvular heart disease. The aortic root is normal size. There is a trivial pericardial effusion noted. There are no echocardiographic or Doppler indications for cardiac tamponade. Findings are consistent with acute diastolic heart failure. Plan Impression Impression #1 acute on chronic kidney injury #2 stage V kidney disease #3 potential with hypertensive heart disease and hypertensive nephrosclerosis Recommendations #1 I will ask renal education nurse to come speak to her about different options with dialysis. Based on tomorrow's she most likely will have a dialysis catheter placed and will probably start her on dialysis during this admission. I have had a long discussion with the patient about her options with dialysis and my recommendations. Total time was 45 minutes. Laz Beck DO March 12, 2017 14:06
--- NOTE | 2017-03-12 14:06 | PCM.PNNEPH ---
Subjective Date of Service March 12, 2017 Subjective Patient's urine output has improved somewhat however her BUN and creatinine remained quite. Her blood pressures have averaged in the 120 range and her intake and output for the last 24 hours were 236 units 1575 out. She denies any chest pain, shortness of breath, nausea or vomiting. In discussing her case with the patient she states that several years ago she was told by a size marker in [place] that she had fairly advanced chronic kidney disease. Unfortunately we do not have access to any records in our system so much and this appears to be a very slight acute on a very chronic condition. Exam Vital Signs Vital Sign - Last Date Time Temp Pulse Resp B/P Pulse Ox O2 Delivery O2 Flow Rate FiO2 03/12/17 13:26 36.5 62 18 131/57 95 Room Air Intake and Output 03/11/17 03/11/17 03/12/17 Cumulative From/Thru 15:00 23:00 07:00 03/07/17 08:04 - 03/12/17 05:59 Intake Total 200 ml 36 ml 700 ml 7242 ml Output Total 675 ml 850 ml 400 ml 02402 ml Balance -475 ml -814 ml 300 ml -5733 ml Intake Oral 200 ml 36 ml 700 ml 5944 ml IV Total 1013 ml Packed Cells 285 ml Output Urine Total 675 ml 850 ml 400 ml 28284 ml # Bowel Movements 1 1 3 Lab and Diagnostics Result Diagram: 03/12/17 0545 03/12/17 0545 X-Rays, CTs and MRIs Chest x-ray IMPRESSION: 1. Cardiomegaly with small pleural effusions and mild pulmonary edema suggesting congestive heart failure. 2. Asymmetric right infrahilar opacities consistent with atelectasis or consolidation. Dictated by: Mervin Sánchez M.D. on 03/07/2017 at 10:01 Approved by: Mervin Sánchez M.D. on 03/07/2017 at 10:06 Cardiac Echo Impressions Echocardiogram Interpretation Summary Left ventricular wall thickness is mildly increased. Left ventricular systolic function is normal without obvious focal wall motion abnormalities. The ejection fraction is estimated to be 60-65%. Assessment of diastolic parameters suggests a pseudonormalization pattern, consistent with elevated filling pressures. The right ventricle is normal in size and function. The right ventricular systolic pressure is estimated at 62 mmHg assuming a right atrial pressure of 15 mm Hg. The left atrium is mildly dilated. The right atrium is mildly dilated. There is moderate mitral regurgitation. There is moderate tricuspid regurgitation. There is no other significant valvular heart disease. The aortic root is normal size. There is a trivial pericardial effusion noted. There are no echocardiographic or Doppler indications for cardiac tamponade. Findings are consistent with acute diastolic heart failure. Laz Beck DO March 12, 2017 14:06
--- NOTE | 2017-03-12 15:48 | PCM.PNMED ---
Subjective Date of Service March 12, 2017 Subjective Denies any new issues/complaints. Exam Vital Signs Vital Sign - Last Date Time Temp Pulse Resp B/P Pulse Ox O2 Delivery O2 Flow Rate FiO2 03/12/17 15:01 130/56 03/12/17 13:26 36.5 62 18 95 Room Air Intake and Output 03/11/17 03/11/17 03/12/17 Cumulative From/Thru 15:00 23:00 07:00 03/07/17 08:04 - 03/12/17 05:59 Intake Total 200 ml 36 ml 700 ml 7242 ml Output Total 675 ml 850 ml 400 ml 50965 ml Balance -475 ml -814 ml 300 ml -5733 ml Intake Oral 200 ml 36 ml 700 ml 5944 ml IV Total 1013 ml Packed Cells 285 ml Output Urine Total 675 ml 850 ml 400 ml 36211 ml # Bowel Movements 1 1 3 Exam General: Alert, Cooperative, No Acute Distress Head: Normal Eyes: Scleral Anicteric Mouth: Mucous Membr Moist/[place] Neck: Supple Chest & Lungs: Clear to auscultation bilat Cardiovascular: Regular Rate/Rhythm Pulses: NL carotid, radial, femoral, DP, PT Abdomen: Non-tender Extremities: No cyanosis/clubbing/edema bilat Neurological: Grossly Neurologically Intact, Normal Speech IVs and Medications Medications Reviewed: Medications were reviewed in detail Lab and Diagnostics Result Diagram: 03/12/17 0545 03/12/17 0545 X-Rays, CTs and MRIs Chest x-ray IMPRESSION: 1. Cardiomegaly with small pleural effusions and mild pulmonary edema suggesting congestive heart failure. 2. Asymmetric right infrahilar opacities consistent with atelectasis or consolidation. Dictated by: Mervin Sánchez M.D. on 03/07/2017 at 10:01 Approved by: Mervin Sánchez M.D. on 03/07/2017 at 10:06 Cardiac Echo Impressions Echocardiogram Interpretation Summary Left ventricular wall thickness is mildly increased. Left ventricular systolic function is normal without obvious focal wall motion abnormalities. The ejection fraction is estimated to be 60-65%. Assessment of diastolic parameters suggests a pseudonormalization pattern, consistent with elevated filling pressures. The right ventricle is normal in size and function. The right ventricular systolic pressure is estimated at 62 mmHg assuming a right atrial pressure of 15 mm Hg. The left atrium is mildly dilated. The right atrium is mildly dilated. There is moderate mitral regurgitation. There is moderate tricuspid regurgitation. There is no other significant valvular heart disease. The aortic root is normal size. There is a trivial pericardial effusion noted. There are no echocardiographic or Doppler indications for cardiac tamponade. Findings are consistent with acute diastolic heart failure. Assessment & Plan 76-year-old female with no known prior history of coronary artery disease that presents with one week of dyspnea and peripheral edema with vague jaw pain. Past medical history is significant for end-stage renal disease, hypertension, hyperlipidemia, type II diabetes mellitus with peripheral neuropathy and breast cancer. Patient presented to the hospital with CHF symptoms. Chest x-ray and echocardiogram verify heart failure findings. Echo suggests acute diastolic heart failure. # Acute on chronic congestive diastolic heart failure, Present on admission: Elevated BNP and CXR, clinical presentation - Lasix 80 mg IV twice a day as ordered at the time of admission, changed to Lasix 40 mg Q8H on 03/09 - Currently diuresis on hold per nephrology - Nitroglycerin, IV morphine, oxygen as needed. Daily weights, accurate I&O's - Appreciate cardiology and nephrology consults. Will followup with recommendations # Elevated Troponin, present on admission. - Unclear if acute NSTEMI vs acute demand ischemia and amplified by underlying kidney disease - Appreciate cardiology consult. Will followup with recs - Ruled out ischemic heart disease with Lexiscan nuclear stress test on 03/11/17 # Acute on chronic kidney injury with likely end-stage renal disease - Appreciate nephrology consult. Will followup with recommendations. - Given acute decompensated heart failure, keep hemoglobin above 8. - Based on tomorrow's labs will likely have a dialysis catheter placed and start dialysis during this admission # Acute on chronic azotemia secondary to underlying renal disease noted above. present on admission. Ongoing and worsening - Plan as noted above. # Acute hyperkalemia, present on admission. Resolved. - Post treatment with Kayexalate at the time of admission - Followup # Anemia of chronic disease with acute exacerbation. present on admission. - Post Aranesp on 03/10 per nephrology - Post 1 unit of PRBC transfusion - Followup h/h # Diabetes type II with hyperglycemia complications. She takes glipizide at home as well as 10 units of Lantus - Continue sliding scale insulin - HgA1C 6.8 - Hold oral medications # Suspected acute UTI on admission ruled out with negative cultures. # Hypertension, chronic. currently stable. - Continue with current meds Disposition: 2-3 days pending further renal workup and recommendations Resuscitation Status: CPR: Attempt Resuscitation (Sr. Kathryn Castaneda is her alternate decision-maker) Tin Haney March 12, 2017 15:48
--- NOTE | 2017-03-12 17:06 | NUR ---
spiritual care: routine pt shared her emotional overwhelm as she hears of need for dialysis and condition of kidneys. "i need to talk to god about it" and pt shared how prayer plays big part of her coping. She engaged in some discussion about this news, its impact, fears and hopes.
--- NOTE | 2017-03-12 18:04 | NUR ---
Activity/BM/Tele/I&O Pt up to bathroom with one person assist to SBA. Slow steady gait. Pt had one extra Large BM today after stating being constipated. Small amount of red streak noted, guaiac sent. Guaiac results came back negative. Pt Sr 70-80s through the day, no c/o of chest pain. Pt intake during day shift 800ml and output 550ml. Will Report to oncoming RN.
[2017-03-13] VITALS (8 sets, daily range): BP systolic 126–150; BP diastolic 60–71; PULSE 58–69; RESP 17–18; O2SAT 94–96
[2017-03-13] MEDS: Sodium Chloride LOK Flush 10 mL Syringe IVFLUSH SCH ×3 (00:35→17:05)
[2017-03-13] MEDS: Heparin 5,000 Unit/mL Inj SUBQ SCH ×3 (00:36→17:09)
--- NOTE | 2017-03-13 06:29 | NUR ---
Respiratory Pt still reports SOB with exertion. denies chest pain or discomfort. Tele SR in the 60s.
[2017-03-13] MEDS: Insulin LISPRO 300 Unit/3 mL Inj SUBQ SCH ×4 (08:59→22:27)
--- NOTE | 2017-03-13 13:18 | PCM.PNNEPH ---
Subjective Date of Service March 13, 2017 Subjective The patient has been seen by our nephrology education nurse and different aspects of dialysis has been discussed with her. I had another lengthy discussion with the patient today about dialysis and expectations, or if her questions have been answered. In the last 24 hours she has had 1711 950 out. Her systolic blood pressures range from 115 145. This morning her sodium is 135 , potassium 5.2, chloride 98, bicarbonate 20, BUN and creatinine were performed 4.45 respectively. Exam Vital Signs Vital Sign - Last Date Time Temp Pulse Resp B/P Pulse Ox O2 Delivery O2 Flow Rate FiO2 03/13/17 13:10 36.6 58 18 131/64 94 Room Air Intake and Output 03/12/17 03/12/17 03/13/17 Cumulative From/Thru 15:00 23:00 07:00 03/07/17 08:04 - 03/13/17 06:36 Intake Total 1000 ml 400 ml 8642 ml Output Total 550 ml 550 ml 71128 ml Balance 450 ml -150 ml -5433 ml Intake Oral 1000 ml 400 ml 7344 ml IV Total 1013 ml Packed Cells 285 ml Output Urine Total 550 ml 550 ml 84041 ml # Bowel Movements 1 4 Exam HEENT examination is remarkable for pale sclera. Neck is supple without adenopathy thyromegaly, or jugular venous distention. Lungs were clear to auscultation. Heart is regular with soft systolic murmur. Abdomen is soft without any tenderness or rebound guarding masses or hepatosplenomegaly. Summary shows some mild generalized pitting edema in both distal lower extremities. Lab and Diagnostics Result Diagram: 03/12/17 0545 03/13/17 0545 X-Rays, CTs and MRIs Chest x-ray IMPRESSION: 1. Cardiomegaly with small pleural effusions and mild pulmonary edema suggesting congestive heart failure. 2. Asymmetric right infrahilar opacities consistent with atelectasis or consolidation. Dictated by: Mervin Sánchez M.D. on 03/07/2017 at 10:01 Approved by: Mervin Sánchez M.D. on 03/07/2017 at 10:06 Cardiac Echo Impressions Echocardiogram Interpretation Summary Left ventricular wall thickness is mildly increased. Left ventricular systolic function is normal without obvious focal wall motion abnormalities. The ejection fraction is estimated to be 60-65%. Assessment of diastolic parameters suggests a pseudonormalization pattern, consistent with elevated filling pressures. The right ventricle is normal in size and function. The right ventricular systolic pressure is estimated at 62 mmHg assuming a right atrial pressure of 15 mm Hg. The left atrium is mildly dilated. The right atrium is mildly dilated. There is moderate mitral regurgitation. There is moderate tricuspid regurgitation. There is no other significant valvular heart disease. The aortic root is normal size. There is a trivial pericardial effusion noted. There are no echocardiographic or Doppler indications for cardiac tamponade. Findings are consistent with acute diastolic heart failure. Plan Impression Impression #1 end-stage renal disease #2 hypertension with hypertensive heart disease and hypertensive nephrosclerosis #3 diabetic renal disease #4 anemia secondary to chronic kidney disease #5 metabolic acidosis secondary to chronic kidney disease. Recommendations #1 I will make recommendations for her to have a tunneled dialysis catheter placed in the morning and we will start her on dialysis. We will also needing plans for her to transition to outpatient dialysis position at our dialysis unit. Laz Beck DO March 13, 2017 13:17
--- NOTE | 2017-03-13 14:32 | PCM.PNMED ---
Subjective Date of Service March 13, 2017 Subjective Denies any new issues/complaints. Exam Vital Signs Vital Sign - Last Date Time Temp Pulse Resp B/P Pulse Ox O2 Delivery O2 Flow Rate FiO2 03/13/17 13:10 36.6 58 18 131/64 94 Room Air Intake and Output 03/12/17 03/12/17 03/13/17 Cumulative From/Thru 15:00 23:00 07:00 03/07/17 08:04 - 03/13/17 06:36 Intake Total 1000 ml 400 ml 8642 ml Output Total 550 ml 550 ml 59780 ml Balance 450 ml -150 ml -5433 ml Intake Oral 1000 ml 400 ml 7344 ml IV Total 1013 ml Packed Cells 285 ml Output Urine Total 550 ml 550 ml 19853 ml # Bowel Movements 1 4 Exam General: Alert, Cooperative, No Acute Distress Head: Normal Eyes: Scleral Anicteric Mouth: Mucous Membr Moist/[place] Neck: Supple Chest & Lungs: Clear to auscultation bilat Cardiovascular: Regular Rate/Rhythm Pulses: NL carotid, radial, femoral, DP, PT Abdomen: Non-tender Extremities: No cyanosis/clubbing/edema bilat Neurological: Grossly Neurologically Intact, Normal Speech IVs and Medications Medications Reviewed: Medications were reviewed in detail Lab and Diagnostics Result Diagram: 03/12/17 0545 03/13/17 0545 X-Rays, CTs and MRIs Chest x-ray IMPRESSION: 1. Cardiomegaly with small pleural effusions and mild pulmonary edema suggesting congestive heart failure. 2. Asymmetric right infrahilar opacities consistent with atelectasis or consolidation. Dictated by: Mervin Sánchez M.D. on 03/07/2017 at 10:01 Approved by: Mervin Sánchez M.D. on 03/07/2017 at 10:06 Cardiac Echo Impressions Echocardiogram Interpretation Summary Left ventricular wall thickness is mildly increased. Left ventricular systolic function is normal without obvious focal wall motion abnormalities. The ejection fraction is estimated to be 60-65%. Assessment of diastolic parameters suggests a pseudonormalization pattern, consistent with elevated filling pressures. The right ventricle is normal in size and function. The right ventricular systolic pressure is estimated at 62 mmHg assuming a right atrial pressure of 15 mm Hg. The left atrium is mildly dilated. The right atrium is mildly dilated. There is moderate mitral regurgitation. There is moderate tricuspid regurgitation. There is no other significant valvular heart disease. The aortic root is normal size. There is a trivial pericardial effusion noted. There are no echocardiographic or Doppler indications for cardiac tamponade. Findings are consistent with acute diastolic heart failure. Assessment & Plan 76-year-old female with no known prior history of coronary artery disease that presents with one week of dyspnea and peripheral edema with vague jaw pain. Past medical history is significant for end-stage renal disease, hypertension, hyperlipidemia, type II diabetes mellitus with peripheral neuropathy and breast cancer. Patient presented to the hospital with CHF symptoms. Chest x-ray and echocardiogram verify heart failure findings. Echo suggests acute diastolic heart failure. # Acute on chronic congestive diastolic heart failure, Present on admission: Elevated BNP and CXR, clinical presentation - Lasix 80 mg IV twice a day as ordered at the time of admission, changed to Lasix 40 mg Q8H on 03/09 - Currently diuresis on hold per nephrology - Nitroglycerin, IV morphine, oxygen as needed. Daily weights, accurate I&O's - Appreciate cardiology and nephrology consults. Will followup with recommendations # Elevated Troponin, present on admission. - Unclear if acute NSTEMI vs acute demand ischemia and amplified by underlying kidney disease - Appreciate cardiology consult. Will followup with recs - Ruled out ischemic heart disease with Lexiscan nuclear stress test on 03/11/17 # Acute on chronic kidney injury with likely end-stage renal disease - Appreciate nephrology consult. Will followup with recommendations. - Given acute decompensated heart failure, keep hemoglobin above 8. - Per nephrology plan is for tunneled dialysis catheter placement and start dialysis during this admission # Acute on chronic azotemia secondary to underlying renal disease noted above. present on admission. Ongoing and worsening - Plan as noted above. # Acute hyperkalemia, present on admission. Resolved. - Post treatment with Kayexalate at the time of admission - Followup # Anemia of chronic disease with acute exacerbation. present on admission. - Post Aranesp on 03/10 per nephrology - Post 1 unit of PRBC transfusion - Followup h/h # Diabetes type II with hyperglycemia complications. She takes glipizide at home as well as 10 units of Lantus - Continue sliding scale insulin - HgA1C 6.8 - Hold oral medications # Suspected acute UTI on admission ruled out with negative cultures. # Hypertension, chronic. currently stable. - Continue with current meds Disposition: 1-2 days Resuscitation Status: CPR: Attempt Resuscitation (Sr. Kathryn Castaneda is her alternate decision-maker) Tin Haney March 13, 2017 14:32
--- NOTE | 2017-03-13 17:59 | NUR ---
Respiratory Pt. states she feels more SOB when ambulating to the bathroom on room air. Pt. also states she feels more exhausted than usual and all she wants to do is take a nap. At rest Pt. states no SOB on room air. Will continue to monitor.
[2017-03-14] VITALS (15 sets, daily range): BP systolic 116–149; BP diastolic 34–79; PULSE 52–67; RESP 12–18; O2SAT 92–99
[2017-03-14] MEDS: Heparin 5,000 Unit/mL Inj SUBQ SCH ×4 (00:06→16:30)
[2017-03-14] MEDS: Sodium Chloride LOK Flush 10 mL Syringe IVFLUSH SCH ×3 (00:07→16:30)
[2017-03-14] MEDS: Insulin LISPRO 300 Unit/3 mL Inj SUBQ SCH ×4 (08:00→22:58)
[2017-03-14] MEDS ORDERED: Heparin 10,000 Unit/1,000 mL NS Premix IV ONE (08:37)
[2017-03-14] MEDS ORDERED: Heparin 1,000 Unit/mL 10 mL Inj ONE (08:37)
[2017-03-14] MEDS ORDERED: Vancomycin 1,000mg/200 mL NS IV ONE (09:10)
--- NOTE | 2017-03-14 09:11 | NUR ---
off floor pt is transported in her bed to have a tunnel catheter placed. pt is scheduled to go to dialysis after procedure. No morning medications were given.
--- NOTE | 2017-03-14 10:31 | PCM.PNNEPH ---
Subjective Date of Service March 14, 2017 Subjective Patient is doing well today. She offers no new complaints and denies any headache, chest pain, or shortness of breath. Exam Vital Signs Vital Sign - Last Date Time Temp Pulse Resp B/P Pulse Ox O2 Delivery O2 Flow Rate FiO2 03/14/17 10:25 57 15 127/40 95 Room Air 03/14/17 06:11 37.2 Intake and Output 03/13/17 03/13/17 03/14/17 Cumulative From/Thru 15:00 23:00 07:00 03/07/17 08:04 - 03/13/17 19:18 Intake Total 800 ml 9442 ml Output Total 350 ml 93225 ml Balance 450 ml -4983 ml Intake Oral 800 ml 8144 ml IV Total 1013 ml Packed Cells 285 ml Output Urine Total 350 ml 11820 ml # Bowel Movements 0 4 Exam HEENT examination is remarkable for pale sclera. Neck is supple without adenopathy, thyromegaly, however she does have some mild jugular venous distention at 60. Lungs few bibasilar rales. Heart is regular and rhythmic with a soft systolic murmur. Abdomen soft without any tenderness rebound guarding or masses. Extremities showed some mild lower extremity edema. Lab and Diagnostics Result Diagram: 03/12/17 0545 03/13/17 0545 X-Rays, CTs and MRIs Chest x-ray IMPRESSION: 1. Cardiomegaly with small pleural effusions and mild pulmonary edema suggesting congestive heart failure. 2. Asymmetric right infrahilar opacities consistent with atelectasis or consolidation. Dictated by: Mervin Sánchez M.D. on 03/07/2017 at 10:01 Approved by: Mervin Sánchez M.D. on 03/07/2017 at 10:06 Cardiac Echo Impressions Echocardiogram Interpretation Summary Left ventricular wall thickness is mildly increased. Left ventricular systolic function is normal without obvious focal wall motion abnormalities. The ejection fraction is estimated to be 60-65%. Assessment of diastolic parameters suggests a pseudonormalization pattern, consistent with elevated filling pressures. The right ventricle is normal in size and function. The right ventricular systolic pressure is estimated at 62 mmHg assuming a right atrial pressure of 15 mm Hg. The left atrium is mildly dilated. The right atrium is mildly dilated. There is moderate mitral regurgitation. There is moderate tricuspid regurgitation. There is no other significant valvular heart disease. The aortic root is normal size. There is a trivial pericardial effusion noted. There are no echocardiographic or Doppler indications for cardiac tamponade. Findings are consistent with acute diastolic heart failure. Plan Impression Impression #1 end-stage renal disease dialysis dependent #2 diabetic nephropathy #3 hypertension with hypertensive heart disease and hypertensive nephrosclerosis Recommendations #1 patient to dialyze today for her first treatment for 3 hours on a revaclear dialyzer, 300 blood flow, 600 dialysate flow, 3 potassium bath, no open, we will take 1-1-1/2 L of fluid off. I will also make arrangements for her to be dialyzed in the morning. Laz Beck DO March 14, 2017 10:31
--- NOTE | 2017-03-14 12:23 | NUR ---
[facility] POST TUNNEL CATH PT WAS RECEIVED FROM ON SITE NURSE AT 1015. RIGHT UPPER CHEST TUNNEL CATH IN PLACE. OPSITE DRSG INTACT, NO BLEEDING OR HEMATOMA NOTED. PT DENIES ANY PAIN AND IS RESTING OFF AND ON AND AROUSES EASILY. REPORT CALLED TO MITCHELL Nguyen RN AND PT AND HER NURSING CARE WERE TRANSFERRED BACK TO ROOM 3012 AT 1200. VERBAL ORDER RECEIVED FROM DR SMITH FOR CXR. TELE CONFIRMED WITH DIGITAL TECHNICIAN.
--- NOTE | 2017-03-14 12:32 | DRSVH ---
PROCEDURE: CV TUNNEL CATH PLCMNT 1. Sonographic guidance for venous access. 2. Conscious sedation for 17 minutes. 3. Right internal jugular vein tunneled hemodialysis catheter placement. 4. Fluoroscopic guidance for catheter placement. INDICATIONS: ESRD TECHNIQUE: The indications, alternatives, benefits, risks, and complications of the procedure were e xplained to the patient and any family members present. Informed written consent was obtained and pl aced in the chart. The patient was brought to the angiography suite, and conscious sedation was admi nistered intravenously by residential staff, while continuous cardiorespiratory monitoring was pe rformed. Maximum sterile barrier technique was employed per standard protocol, including hand hygiene, cap, ma sk, sterile gown and gloves, and 2% chlorhexidine. Sterile ultrasound probe cover was also utilized. 1% lidocaine was used for local anaesthesia. Under sonographic guidance, the right internal jugular vein was accessed with a Micropuncture set. An 0.035J wire was advanced into the vena cava. Subcuta neous tunnel was created within the right anterior chest wall, through which a 14.5 English double lum en tunneled hemodialysis catheter was advanced. Following sequential venotomy tract dilation, the ca theter was advanced through the peel-away sheath and the tip was placed at the cavoatrial junction. Peel-away sheath was removed. Adequate flow was obtained through both lumens of the catheter. The v enotomy was closed with Vicryl, and the catheter was fastened to the sking with Ticron. Both lumens were flushed with heparinized saline. The patient tolerated the procedure without difficulty and was in stable condition at the conclusion of the procedure. COMPARISON: None. FINDINGS: The right internal jugular vein is patent by ultrasound. Fluoroscopic imaging demonstrates tip of th e catheter at the cavoatrial junction. IMPRESSION: Right internal jugular vein tunneled hemodialysis catheter placement using sonographic and fluoroscop ic guidance. Dictated by: Raquel Manley MD, PhD on 03/14/2017 at 12:30 Approved by: Raquel Manley MD, PhD on 03/14/2017 at 12:31
--- NOTE | 2017-03-14 13:20 | DRSVH ---
PROCEDURE: X-RAY CHEST ONE VIEW, PORTABLE ([id number]) INDICATIONS: POST S/L LINE PLACEMENT TECHNIQUE: One view of the chest was acquired. COMPARISON: [facility], CR, XR CHEST 1VW (PORTABLE), 03/07/2017, 9:22. FINDINGS: Surgical changes and devices: Large bore right-sided central venous catheter with tip projecting in t he upper SVC Lungs and pleura: No pleural effusions or pneumothorax. Lungs are clear. Mediastinum: Cardiac silhouette and mediastinal contours are stable. Bones and chest wall: No suspicious bony lesions. Overlying soft tissues appear unremarkable. IMPRESSION: No acute disease. No pneumothorax. Dictated by: Gaston Bocanegra M.D. on 03/14/2017 at 13:17 Approved by: Gaston Bocanegra M.D. on 03/14/2017 at 13:19
--- NOTE | 2017-03-14 14:06 | NUR ---
Social Work: Readiness for d/c Data: Pt is on day 7 of hospitalization. EMR reviewed, pt discussed in rounds. states pt likely to d/c tomorrow. No d/c planning needs at this time. FACULTY HEAD will continue to follow if needs arise. Assessment: Pt who is independent at baseline. Plan: Pt will d/c home via POV when medically stable. No d/c planning needs at this time. FACULTY HEAD will continue to follow if needs arise. KATHARINE Quintanilla
--- NOTE | 2017-03-14 14:28 | PCM.PNMED ---
Subjective Date of Service March 14, 2017 Subjective Denies any new issues/complaints. Exam Vital Signs Vital Sign - Last Date Time Temp Pulse Resp B/P Pulse Ox O2 Delivery O2 Flow Rate FiO2 03/14/17 14:01 36.4 64 18 116/50 99 Room Air 03/14/17 11:15 2.00 Intake and Output 03/13/17 03/13/17 03/14/17 Cumulative From/Thru 15:00 23:00 07:00 03/07/17 08:04 - 03/13/17 19:18 Intake Total 800 ml 9442 ml Output Total 350 ml 32562 ml Balance 450 ml -4983 ml Intake Oral 800 ml 8144 ml IV Total 1013 ml Packed Cells 285 ml Output Urine Total 350 ml 82888 ml # Bowel Movements 0 4 Exam General: Alert, Cooperative, No Acute Distress Head: Normal Eyes: Scleral Anicteric Mouth: Mucous Membr Moist/[place] Neck: Supple Chest & Lungs: Clear to auscultation bilat Cardiovascular: Regular Rate/Rhythm Pulses: NL carotid, radial, femoral, DP, PT Abdomen: Non-tender Extremities: No cyanosis/clubbing/edema bilat Neurological: Grossly Neurologically Intact, Normal Speech IVs and Medications Medications Reviewed: Medications were reviewed in detail Lab and Diagnostics Result Diagram: 03/12/1745 03/13/1745 X-Rays, CTs and MRIs Chest x-ray IMPRESSION: 1. Cardiomegaly with small pleural effusions and mild pulmonary edema suggesting congestive heart failure. 2. Asymmetric right infrahilar opacities consistent with atelectasis or consolidation. Dictated by: Mervin Sánchez M.D. on 03/07/2017 at 10:01 Approved by: Mervin Sánchez M.D. on 03/07/2017 at 10:06 Cardiac Echo Impressions Echocardiogram Interpretation Summary Left ventricular wall thickness is mildly increased. Left ventricular systolic function is normal without obvious focal wall motion abnormalities. The ejection fraction is estimated to be 60-65%. Assessment of diastolic parameters suggests a pseudonormalization pattern, consistent with elevated filling pressures. The right ventricle is normal in size and function. The right ventricular systolic pressure is estimated at 62 mmHg assuming a right atrial pressure of 15 mm Hg. The left atrium is mildly dilated. The right atrium is mildly dilated. There is moderate mitral regurgitation. There is moderate tricuspid regurgitation. There is no other significant valvular heart disease. The aortic root is normal size. There is a trivial pericardial effusion noted. There are no echocardiographic or Doppler indications for cardiac tamponade. Findings are consistent with acute diastolic heart failure. Assessment & Plan 76-year-old female with no known prior history of coronary artery disease that presents with one week of dyspnea and peripheral edema with vague jaw pain. Past medical history is significant for end-stage renal disease, hypertension, hyperlipidemia, type II diabetes mellitus with peripheral neuropathy and breast cancer. Patient presented to the hospital with CHF symptoms. Chest x-ray and echocardiogram verify heart failure findings. Echo suggests acute diastolic heart failure. # Acute on chronic kidney injury with end-stage renal disease - Appreciate nephrology consult. Will followup with recommendations. - Post right internal jugular vein tunneled hemodialysis catheter placement by interventional radiology on 03/14/17 - Start initial hemodialysis on 03/14 # Acute on chronic congestive diastolic heart failure, Present on admission: Elevated BNP and CXR, clinical presentation - Nitroglycerin, IV morphine, oxygen as needed. Daily weights, accurate I&O's - Appreciate cardiology and nephrology consults. Will followup with recommendations - Further fluid management via dialysis per nephrology recs # Elevated Troponin, present on admission. - Unclear if acute NSTEMI vs acute demand ischemia and amplified by underlying kidney disease - Appreciate cardiology consult. Will followup with recs - Ruled out ischemic heart disease with Lexiscan nuclear stress test on 03/11/17 # Acute on chronic azotemia secondary to underlying renal disease noted above. present on admission. Ongoing and worsening - Plan as noted above. # Acute hyperkalemia, present on admission. Resolved. - Post treatment with Kayexalate at the time of admission - Further dialysis as noted above # Anemia of chronic disease with acute exacerbation. present on admission. - Post Aranesp on 03/10 per nephrology - Post 1 unit of PRBC transfusion - Followup h/h # Diabetes type II with hyperglycemia complications. She takes glipizide at home as well as 10 units of Lantus - Continue sliding scale insulin - HgA1C 6.8 - Hold oral medications # Suspected acute UTI on admission ruled out with negative cultures. # Hypertension, chronic. currently stable. - Continue with current meds Disposition: 1-2 days Resuscitation Status: CPR: Attempt Resuscitation (Sr. Kathryn Castaneda is her alternate decision-maker) Tin Haney March 14, 2017 14:28
--- NOTE | 2017-03-14 14:54 | NUR ---
off floor/dialysis pt down to room 243 2nd floor for dialysis. pt transported in bed by RN and HAND WRAPPER OPERATOR.
--- NOTE | 2017-03-14 15:26 | NUR ---
pt arrived to [facility] for DIALYSIS via bed at ~1445 via bed report from primary nurse PM RN ([facility]) tele youth nutritional monitor informed of temp room location tomato grader at bedside; will cont to monitor
--- NOTE | 2017-03-14 18:14 | NUR ---
Dialysis note: S/P catheter placement 3 hours tx 1500 ml net UF Right catheter, dsg changed, sutures intact Hep B/C serologies drawn Pls see DTR for VS details Qb 300 w/ catheter limbs reversed A-V V-A due to poor cath function No heparin given O2 @ 2L via NC on during tx Tolerated tx, slept at intervals Catheter flushed, heparin dwelled and secured Stable condition at end of tx Report given to Avelina RIVERA
--- NOTE | 2017-03-14 18:15 | NUR ---
returned to floor pt back from dialysis. 1.5 L removed. pt resting in bed, no complaints.
--- NOTE | 2017-03-14 18:18 | NUR ---
pt returned to [facility] post DIALYSIS at ~1815 report returned to PM telemarketing supervisor digital camera technician informed of return pt tolerated treatment well see clam dredge boat captain note, interventions, and/or graphic flow for treatment details
[2017-03-15] VITALS (10 sets, daily range): BP systolic 135–166; BP diastolic 55–64; PULSE 60–71; RESP 18–20; O2SAT 92–96
[2017-03-15] MEDS: Heparin 5,000 Unit/mL Inj SUBQ SCH ×3 (01:05→16:30)
[2017-03-15] MEDS: Sodium Chloride LOK Flush 10 mL Syringe IVFLUSH SCH ×3 (01:05→16:30)
[2017-03-15 06:10] LABS: Mean Corpuscular Hemoglobin 28.7 pg (27.0-35.0); Mean Corpuscular Volume 90.7 fL (81-100)
[2017-03-15] MEDS: Insulin LISPRO 300 Unit/3 mL Inj SUBQ SCH ×4 (08:00→22:00)
--- NOTE | 2017-03-15 11:01 | PCM.PNNEPH ---
Subjective Date of Service March 15, 2017 Subjective Patient tolerated her first dialysis treatment yesterday without problems. She is scheduled for her second dialysis treatment today. She denies any headache, chest pain, shortness of breath, nausea or vomiting. Her blood pressure has ranged between 100s to mid 150s. Her intake and output last 24 hours were 120 50 out. This morning her hemoglobin is 8.6, sodium 135, potassium 4.7, chloride of 95, bicarbonate 25, BUN and creatinine were 61 and 3.33 respectively. Exam Vital Signs Vital Sign - Last Date Time Temp Pulse Resp B/P Pulse Ox O2 Delivery O2 Flow Rate FiO2 03/15/17 10:50 64 03/15/17 05:53 37.1 18 142/55 92 Room Air 03/14/17 11:15 2.00 Intake and Output 03/14/17 03/14/17 03/15/17 Cumulative From/Thru 15:00 23:00 07:00 03/07/17 08:04 - 03/15/17 05:53 Intake Total 350 ml 750 ml 79294 ml Output Total 1800 ml 250 ml 75809 ml Balance -1450 ml 500 ml -5933 ml Intake Oral 350 ml 750 ml 9244 ml IV Total 1013 ml Packed Cells 285 ml Output Urine Total 300 ml 250 ml 50140 ml Ultrafiltrate 1500 ml 1500 ml # Bowel Movements 0 4 Exam Neck is supple without adenopathy, thyromegaly, or jugular venous distention. Lungs are clear to auscultation although somewhat diminished. Heart is regular with pedicle soft systolic murmur. Abdomen soft without any tenderness rebound guarding masses or hepatosplenomegaly. She recent x-ray evidence of any clubbing cyanosis or edema. Skin turgor is good. Lab and Diagnostics Result Diagram: 03/15/17 0550 03/15/17 0550 X-Rays, CTs and MRIs Chest x-ray IMPRESSION: 1. Cardiomegaly with small pleural effusions and mild pulmonary edema suggesting congestive heart failure. 2. Asymmetric right infrahilar opacities consistent with atelectasis or consolidation. Dictated by: Mervin Sánchez M.D. on 03/07/2017 at 10:01 Approved by: Mervin Sánchez M.D. on 03/07/2017 at 10:06 Cardiac Echo Impressions Echocardiogram Interpretation Summary Left ventricular wall thickness is mildly increased. Left ventricular systolic function is normal without obvious focal wall motion abnormalities. The ejection fraction is estimated to be 60-65%. Assessment of diastolic parameters suggests a pseudonormalization pattern, consistent with elevated filling pressures. The right ventricle is normal in size and function. The right ventricular systolic pressure is estimated at 62 mmHg assuming a right atrial pressure of 15 mm Hg. The left atrium is mildly dilated. The right atrium is mildly dilated. There is moderate mitral regurgitation. There is moderate tricuspid regurgitation. There is no other significant valvular heart disease. The aortic root is normal size. There is a trivial pericardial effusion noted. There are no echocardiographic or Doppler indications for cardiac tamponade. Findings are consistent with acute diastolic heart failure. Plan Impression Impression #1 end-stage renal disease dialysis dependent number to diabetic renal disease #3 hypertension with hypertensive heart disease and hypertensive nephrosclerosis #4 anemia secondary to chronic kidney disease. Duration #1 patient is dialyzed today for her second treatment for 3-1/2 hours on a max dialyzer, 3 potassium bath, 1000 units of heparin as a loading dose and 500 and will attempt to take 1-2 L of fluid off. Following her dialysis treatment today she can be discharged today or tomorrow with instructions to follow-up in [facility] on Friday for about one outpatient treatment. Laz Beck DO March 15, 2017 11:01
--- NOTE | 2017-03-15 12:33 | PCM.PNMED ---
Subjective Date of Service March 15, 2017 Subjective Denies any new issues/complaints. Exam Vital Signs Vital Sign - Last Date Time Temp Pulse Resp B/P Pulse Ox O2 Delivery O2 Flow Rate FiO2 03/15/17 10:57 36.5 66 18 135/57 95 Room Air 03/14/17 11:15 2.00 Intake and Output 03/14/17 03/14/17 03/15/17 Cumulative From/Thru 15:00 23:00 07:00 03/07/17 08:04 - 03/15/17 05:53 Intake Total 350 ml 750 ml 26171 ml Output Total 1800 ml 250 ml 59687 ml Balance -1450 ml 500 ml -5933 ml Intake Oral 350 ml 750 ml 9244 ml IV Total 1013 ml Packed Cells 285 ml Output Urine Total 300 ml 250 ml 53965 ml Ultrafiltrate 1500 ml 1500 ml # Bowel Movements 0 4 Exam General: Alert, Cooperative, No Acute Distress Head: Normal Eyes: Scleral Anicteric Mouth: Mucous Membr Moist/[place] Neck: Supple Chest & Lungs: Clear to auscultation bilat Cardiovascular: Regular Rate/Rhythm Pulses: NL carotid, radial, femoral, DP, PT Abdomen: Non-tender Extremities: No cyanosis/clubbing/edema bilat Neurological: Grossly Neurologically Intact, Normal Speech IVs and Medications Medications Reviewed: Medications were reviewed in detail Lab and Diagnostics Result Diagram: 03/15/17 0550 03/15/17 0550 X-Rays, CTs and MRIs Chest x-ray IMPRESSION: 1. Cardiomegaly with small pleural effusions and mild pulmonary edema suggesting congestive heart failure. 2. Asymmetric right infrahilar opacities consistent with atelectasis or consolidation. Dictated by: Mervin Sánchez M.D. on 03/07/2017 at 10:01 Approved by: Mervin Sánchez M.D. on 03/07/2017 at 10:06 Cardiac Echo Impressions Echocardiogram Interpretation Summary Left ventricular wall thickness is mildly increased. Left ventricular systolic function is normal without obvious focal wall motion abnormalities. The ejection fraction is estimated to be 60-65%. Assessment of diastolic parameters suggests a pseudonormalization pattern, consistent with elevated filling pressures. The right ventricle is normal in size and function. The right ventricular systolic pressure is estimated at 62 mmHg assuming a right atrial pressure of 15 mm Hg. The left atrium is mildly dilated. The right atrium is mildly dilated. There is moderate mitral regurgitation. There is moderate tricuspid regurgitation. There is no other significant valvular heart disease. The aortic root is normal size. There is a trivial pericardial effusion noted. There are no echocardiographic or Doppler indications for cardiac tamponade. Findings are consistent with acute diastolic heart failure. Assessment & Plan 76-year-old female with no known prior history of coronary artery disease that presents with one week of dyspnea and peripheral edema with vague jaw pain. Past medical history is significant for end-stage renal disease, hypertension, hyperlipidemia, type II diabetes mellitus with peripheral neuropathy and breast cancer. Patient presented to the hospital with CHF symptoms. Chest x-ray and echocardiogram verify heart failure findings. Echo suggests acute diastolic heart failure. # Acute on chronic kidney injury with end-stage renal disease - Appreciate nephrology consult. Will followup with recommendations. - Post right internal jugular vein tunneled hemodialysis catheter placement by interventional radiology on 03/14/17 - Start initial hemodialysis on 03/14 - Plan for another round of dialysis today # Acute on chronic congestive diastolic heart failure, Present on admission: Elevated BNP and CXR, clinical presentation - Nitroglycerin, IV morphine, oxygen as needed. Daily weights, accurate I&O's - Appreciate cardiology and nephrology consults. Will followup with recommendations - Further fluid management via dialysis per nephrology recs # Elevated Troponin, present on admission. - Unclear if acute NSTEMI vs acute demand ischemia and amplified by underlying kidney disease - Appreciate cardiology consult. Will followup with recs - Ruled out ischemic heart disease with Lexiscan nuclear stress test on 03/11/17 # Acute on chronic azotemia secondary to underlying renal disease noted above. present on admission. Ongoing and worsening - Plan as noted above. # Acute hyperkalemia, present on admission. Resolved. - Post treatment with Kayexalate at the time of admission - Further dialysis as noted above # Anemia of chronic disease with acute exacerbation. present on admission. - Post Aranesp on 03/10 per nephrology - Post 1 unit of PRBC transfusion - Followup h/h # Diabetes type II with hyperglycemia complications. She takes glipizide at home as well as 10 units of Lantus - Continue sliding scale insulin - HgA1C 6.8 - Hold oral medications # Suspected acute UTI on admission ruled out with negative cultures. # Hypertension, chronic. currently stable. - Continue with current meds Disposition: Likely home tomorrow Resuscitation Status: CPR: Attempt Resuscitation (. Kathryn Castaneda is her alternate decision-maker) Tin Haney March 15, 2017 12:33
--- NOTE | 2017-03-15 14:29 | NUR ---
Pt arrived to [facility]: Pt arrived [place] [facility] [place] dialysis treatment. Pt appears stable at time of arrival. Report given by Sixto De La Fuente RN. industrial safety and health technician aware of transfer. Addendum: 03/15/17 at 1447 by LISA DE LA FUENTE RN Meds accompany chart with transfer.
--- NOTE | 2017-03-15 18:00 | NUR ---
Dialysis note: 3 1/2 hours tx 2000 ml net UF Right catheter, dsg dry and intact Pls see DTR for VS details Qb 400 w/ catheter limbs reversed A-V V-A due to poor cath function Heparin given O2 @ 2L via NC on during tx Tolerated tx, slept at intervals Catheter flushed, heparin dwelled and secured Stable condition at end of tx Report given to Ally RIVERA
--- NOTE | 2017-03-15 18:05 | NUR ---
Pt returned to [facility]: Pt returned to [facility] post dialysis. Pt tolerated treatment well. Report given to Sixto De La Fuente RN. thin film technician aware of transfer. No medication given while here at dialysis. Blood sugar 108, no insulin required. Pt left the floor in stable condition. Addendum: 03/15/17 at 1839 by LISA DE LA FUENTE RN Meds admin, family at bedside and awaiting dinner at this time. Plan is to d/c with OP dialysis.
[2017-03-16] MEDS: Sodium Chloride LOK Flush 10 mL Syringe IVFLUSH SCH ×2 (00:22→08:13)
[2017-03-16] MEDS: Heparin 5,000 Unit/mL Inj SUBQ SCH ×2 (00:32→08:02)
[2017-03-16 00:36] VITALS: BP 127/57; PULSE 76; RESP 20; O2SAT 92
[2017-03-16 05:39] VITALS: PULSE 70
[2017-03-16 06:15] VITALS: BP 150/57; PULSE 73; RESP 20; O2SAT 93
[2017-03-16] MEDS: Insulin LISPRO 300 Unit/3 mL Inj SUBQ SCH ×2 (08:02→12:00)
[2017-03-16 10:00] VITALS: BP 125/51; PULSE 65; RESP 18; O2SAT 96
[2017-03-16] MEDS ORDERED: AMLO10TA3 PO (10:21)
[2017-03-16] MEDS ORDERED: ASPI325T32 PO (10:21)
[2017-03-16] MEDS ORDERED: LOSA50TA3 PO (10:21)
[2017-03-16] MEDS ORDERED: CARV12.52 PO (10:21)
[2017-03-16] MEDS ORDERED: ISOS5TAB17 PO (10:21)
[2017-03-16] MEDS ORDERED: NITR0.4T SL (10:21)
[2017-03-16] MEDS ORDERED: HYDR-3939 PO (10:21)
--- NOTE | 2017-03-16 10:32 | PCM.DIMED ---
Discharge Instructions Date of Service March 16, 2017 Dates of Hospitalization March 07, 2017 at 13:45 Discharge Diagnosis Discharge Diagnosis # Acute on chronic kidney injury with end-stage renal disease - Post right internal jugular vein tunneled hemodialysis catheter placement by interventional radiology on 03/14/17 - Started initial hemodialysis on 03/14/17 # Acute on chronic congestive diastolic heart failure, Present on admission. Improved # Elevated Troponin, present on admission. Likely acute demand ischemia and amplified by underlying kidney disease - Ruled out ischemic heart disease with a negative Lexiscan nuclear stress test on 03/11/17 # Acute on chronic azotemia secondary to underlying renal disease noted above. present on admission. # Acute hyperkalemia, present on admission. Resolved. # Anemia of chronic disease with acute exacerbation. present on admission. - Post Aranesp on 03/10/17 - Post 1 unit of packed red blood cell transfusion (PRBC) transfusion # Diabetes type II with hyperglycemia complications. - HgA1C 6.8 # Suspected acute UTI on admission ruled out with negative cultures. # Hypertension, chronic. currently stable. Diet Discharge Diet: Low fat, Low Sodium, Heart Healthy, Diabetic, Renal Diet Activity Discharge Activity: No restrictions Call your provider Call your provider for: Fever or Chills, Shortness of breath, Bleeding, Chest pain Patient Instructions Patient Instructions Seek immediate medical attention if any new or worsening signs or symptoms occur. Follow-up plan 1. Followup with primary care provider within in one week 2. Followup at [facility] ([facility]) on Friday03/18/17 at 8:00AM for another round of hemodialysis. At that visit ask the staff regarding plan for further dialysis schedule and further followup appointment with nephrology ( Dr. Beck). Follow-up Provider: Laz Beck DO Follow-up with PCP in: 1 week Tin Haney March 16, 2017 10:32
--- NOTE | 2017-03-16 11:26 | NUR ---
Social Work: Discharge Data: Pt is on day 9 of hospitalization. EMR reviewed. D/C orders are in. No d/c planning needs at this time. BREEDER HEN SERVICE TECHNICIAN will continue to follow if needs arise. Assessment: Pt who is independent at baseline. Plan: Pt will d/c home via POV today. No d/c planning needs at this time. BREEDER HEN SERVICE TECHNICIAN will continue to follow if needs arise. KATHARINE Quintanilla
[2017-03-16 11:40] VITALS: PULSE 68
--- NOTE | 2017-03-16 11:41 | PCM.PNNEPH ---
Subjective Date of Service March 16, 2017 Subjective Patient continues to do well and was scheduled for discharge today. She offers no new complaints and we have been arrangements for her outpatient dialysis. Exam Vital Signs Vital Sign - Last Date Time Temp Pulse Resp B/P Pulse Ox O2 Delivery O2 Flow Rate FiO2 03/16/17 10:07 CPAP/BIPAP 03/16/17 10:00 36.9 65 18 125/51 96 03/14/17 11:15 2.00 Intake and Output 03/15/17 03/15/17 03/16/17 Cumulative From/Thru 15:00 23:00 07:00 03/07/17 08:04 - 03/16/17 06:55 Intake Total 100 ml 540 ml 200 ml 65892 ml Output Total 2100 ml 350 ml 200 ml 13623 ml Balance -2000 ml 190 ml 0 ml -7743 ml Intake Oral 100 ml 540 ml 200 ml 82117 ml IV Total 1013 ml Packed Cells 285 ml Output Urine Total 100 ml 350 ml 200 ml 56046 ml Ultrafiltrate 2000 ml 3500 ml # Bowel Movements 0 0 4 Exam Neck is supple without adenopathy, thyromegaly, or jugular venous distention. Lungs were clear to auscultation. Heart is regular and rhythmical with a small systolic murmur. Abdomen soft without any tenderness rebound guarding masses or hepatosplenomegaly. Extremities do not show any evidence of any clubbing, cyanosis, or edema. Lab and Diagnostics Result Diagram: 03/15/17 0550 03/15/17 0550 X-Rays, CTs and MRIs Chest x-ray IMPRESSION: 1. Cardiomegaly with small pleural effusions and mild pulmonary edema suggesting congestive heart failure. 2. Asymmetric right infrahilar opacities consistent with atelectasis or consolidation. Dictated by: Mervin Sánchez M.D. on 03/07/2017 at 10:01 Approved by: Mervin Sánchez M.D. on 03/07/2017 at 10:06 Cardiac Echo Impressions Echocardiogram Interpretation Summary Left ventricular wall thickness is mildly increased. Left ventricular systolic function is normal without obvious focal wall motion abnormalities. The ejection fraction is estimated to be 60-65%. Assessment of diastolic parameters suggests a pseudonormalization pattern, consistent with elevated filling pressures. The right ventricle is normal in size and function. The right ventricular systolic pressure is estimated at 62 mmHg assuming a right atrial pressure of 15 mm Hg. The left atrium is mildly dilated. The right atrium is mildly dilated. There is moderate mitral regurgitation. There is moderate tricuspid regurgitation. There is no other significant valvular heart disease. The aortic root is normal size. There is a trivial pericardial effusion noted. There are no echocardiographic or Doppler indications for cardiac tamponade. Findings are consistent with acute diastolic heart failure. Plan Impression Impression #1 end-stage renal disease dialysis dependent #2 diabetic renal disease #3 hypertension with hypertensive heart disease and hypertensive nephrosclerosis Recommendations #1 the patient's follow-up in the outpatient dialysis unit [facility] on Friday and then we will transition across the street toward dialysis unit. She can be discharged today Laz Beck DO March 16, 2017 11:41
--- NOTE | 2017-03-16 14:48 | NUR ---
Discharge IV dc'd intact and scripts, discharge information and teaching provided by student nurse and RN with pt.'s daughter in the room. Due to pt and daughter's uncertainty about location of scheduled dialysis tx; RN accompanied pt and daughter to [facility] via w/c to show them the way. Afterwards, both stated they were comfortable with plan of care. Patient left floor via w/c at 1335 with RN, daughter and student nurse with all belongings and discharge packet.
--- NOTE | 2017-03-16 15:03 | PCM.DC.MED ---
Discharge Summary Date of Service March 16, 2017 Dates of Hospitalization Date of Hospital Admission March 07, 2017 at 13:45 Date of Discharge: March 16, 2017 Providers: Admitting Physician: Naty Lopez DO Primary Care Physician: Nika Beck,Jesse Bedolla MD Attending Physician: Naty Lopez DO Diagnosis at Time of Discharge Diagnosis at Time of Discharge # Acute on chronic kidney injury with end-stage renal disease - Post right internal jugular vein tunneled hemodialysis catheter placement by interventional radiology on 03/14/17 - Started initial hemodialysis on 03/14/17 # Acute on chronic congestive diastolic heart failure, Present on admission. Improved # Elevated Troponin, present on admission. Likely acute demand ischemia and amplified by underlying kidney disease - Ruled out ischemic heart disease with a negative Lexiscan nuclear stress test on 03/11/17 # Acute on chronic azotemia secondary to underlying renal disease noted above. present on admission. # Acute hyperkalemia, present on admission. Resolved. # Anemia of chronic disease with acute exacerbation. present on admission. - Post Aranesp on 03/10/17 - Post 1 unit of packed red blood cell transfusion (PRBC) transfusion # Diabetes type II with hyperglycemia complications. - HgA1C 6.8 # Suspected acute UTI on admission ruled out with negative cultures. # Hypertension, chronic. currently stable. Consultations 1. Cardiology 2. Nephrology Procedures XRay, CTs & MRIs Date of Service: 03/07/17 0836 PROCEDURE: X-RAY CHEST ONE VIEW, PORTABLE ([id number]) IMPRESSION: 1. Cardiomegaly with small pleural effusions and mild pulmonary edema suggesting congestive heart failure. 2. Asymmetric right infrahilar opacities consistent with atelectasis or consolidation. Dictated by: Mervin Sánchez M.D. on 03/07/2017 at 10:01 Approved by: Mervin Sánchez M.D. on 03/07/2017 at 10:06 Cardiac Echo Impression Date of Service: 03/08/17 1424 Echocardiogram Report Interpretation Summary Left ventricular wall thickness is mildly increased. Left ventricular systolic function is normal without obvious focal wall motion abnormalities. The ejection fraction is estimated to be 60-65%. Assessment of diastolic parameters suggests a pseudonormalization pattern, consistent with elevated filling pressures. The right ventricle is normal in size and function. The right ventricular systolic pressure is estimated at 62 mmHg assuming a right atrial pressure of 15 mm Hg. The left atrium is mildly dilated. The right atrium is mildly dilated. There is moderate mitral regurgitation. There is moderate tricuspid regurgitation. There is no other significant valvular heart disease. The aortic root is normal size. There is a trivial pericardial effusion noted. There are no echocardiographic or Doppler indications for cardiac tamponade. Findings are consistent with acute diastolic heart failure. Reading Physician:KARTHIK Invasive Procedures Date of Service: 03/14/17 0930 PROCEDURE: CV TUNNEL CATH PLCMNT 1. Sonographic guidance for venous access. 2. Conscious sedation for 17 minutes. 3. Right internal jugular vein tunneled hemodialysis catheter placement. 4. Fluoroscopic guidance for catheter placement. IMPRESSION: Right internal jugular vein tunneled hemodialysis catheter placement using sonographic and fluoroscopic guidance. Dictated by: Raquel Manley MD, PhD on 03/14/2017 at 12:30 Approved by: Raquel Manley MD, PhD on 03/14/2017 at 12:31 Other Diagnostics Date of Service: 03/08/17 1423 PROCEDURE: US RENAL SONOGRAM IMPRESSION: 1. Mild renal cortical thinning compatible with history of chronic renal disease. 2. No hydronephrosis. 3. Possible left bladder diverticulum. Dictated by: Raquel Manley MD, PhD on 03/09/2017 at 15:17 Approved by: Raquel Manley MD, PhD on 03/09/2017 at 15:18 Date of Service: 03/11/17 1025 PROCEDURE: ONE DAY PHARMACOLOGICAL STRESS TEST Rest and pharmacological stress myocardial perfusion SPECT with gated imaging and ejection fraction IMPRESSION: 1. No chest pain. 2. No electrocardiogram changes. 3. No areas of ischemia identified. 4. Normal wall motion and ejection fraction. Dictated by: Leonel Samayoa M.D. on 03/11/2017 at 16:42 Transcribed by: STIVEN on 03/11/2017 at 22:30 Brief History As noted in H&P by Dr. Lopez: 76-year-old pleasant white female with past medical history of diabetes type II hypertension, end-stage renal disease, hyperlipidemia, CAD, breast cancer status post lumpectomy is presenting with a chief complaint of dyspnea and orthopnea. Patient states that she has had pneumonia in early January and was recovering from it. she states that 2 weeks ago she started becoming more dyspneic, leg started more swollen. She feels she started getting better from that. She was recently treated for UTI 2 weeks ago. She did not take her medications this morning. For the past several evenings, she has been waking up in the middle of the night due to SOB. C/o associated jaw pain. She has noticed increased SOB during the day which increases with exacerbation and LE edema for the last month. She had pneumonia in early January and was put on a 5 day course of Zithromax in the beginning of February. She denies fever, cough, chest pain, or any other lung issues. She says that she was never told she had heart disease or CHF. She feels that her A1c is fairly well controlled. She does not have a current superintendent of generation. She does see a marine oil terminal superintendent he she feels his name is Dr. Ruff in [place].Exam chest x-ray and labs are all consistent with acute congestive heart failure for which she says she has never had a previous diagnosis. Hospital Course # Acute on chronic kidney injury with end-stage renal disease - Appreciate nephrology consult. - Post right internal jugular vein tunneled hemodialysis catheter placement by interventional radiology on 03/14/17 - Start initial hemodialysis on 03/14 - Per recommendation by Dr. Beck patient is to present to [facility] on Friday for next round of dialysis and further followup will be scheduled at that time. # Acute on chronic congestive diastolic heart failure, Present on admission: Elevated BNP and CXR, clinical presentation - Nitroglycerin, IV morphine, oxygen as needed. Daily weights, accurate I&O's - Appreciate cardiology and nephrology consults. Will followup with recommendations - Further fluid management via dialysis per nephrology recs - No further oral diuretics at this time per nephrology recommendations # Elevated Troponin, present on admission. - Suspect likely acute demand ischemia and amplified by underlying kidney disease - Appreciate cardiology consult. - Ruled out ischemic heart disease with Lexiscan nuclear stress test on 03/11/17 # Acute on chronic azotemia secondary to underlying renal disease noted above. present on admission. Ongoing and worsening - Plan as noted above. # Acute hyperkalemia, present on admission. Resolved. - Post treatment with Kayexalate at the time of admission - Further dialysis as noted above # Anemia of chronic disease with acute exacerbation. present on admission. - Post Aranesp on 03/10 per nephrology - Post 1 unit of PRBC transfusion # Diabetes type II with hyperglycemia complications. She takes glipizide at home as well as 10 units of Lantus - Continue sliding scale insulin - HgA1C 6.8 - Hold oral medications # Suspected acute UTI on admission ruled out with negative cultures. # Hypertension, chronic. currently stable. - Continue with current meds Exam Vital Signs (Last) Date Time Temp Pulse Resp B/P Pulse Ox O2 Delivery O2 Flow Rate FiO2 03/16/17 11:40 68 03/16/17 10:07 CPAP/BIPAP 03/16/17 10:00 36.9 18 125/51 96 03/14/17 11:15 2.00 Exam General: Alert, Cooperative, No Acute Distress Head: Normal Eyes: Scleral Anicteric Mouth: Mucous Membr Moist/[place] Neck: Supple Chest & Lungs: Clear to auscultation bilat Cardiovascular: Regular Rate/Rhythm Pulses: NL carotid, radial, femoral, DP, PT Abdomen: Non-tender Extremities: No cyanosis/clubbing/edema bilat Neurological: Grossly Neurologically Intact, Normal Speech Test 03/07/17 09:10 03/07/17 11:21 03/07/17 20:30 03/08/17 02:04 Hemoglobin A1c 6.8% (4.8-5.6) Lactic Acid Level 0.7mmol/L (0.4-2.0) Pro-B-Type Natriuretic Peptide 45885xs/mL (0-738) Procalcitonin 0.16ng/mL (0.00-0.08) Urine Color Straw (YELLOW) Urine Appearance Hazy (CLEAR,HAZY) Urine pH 6.0 (5.0-8.0) Urine Specific [place] 1.020 (1.003-1.035) Urine Protein 100mg/dL (NEG,TRACE) Urine Glucose (UA) 100mg/dL (NEGATIVE) Urine Ketones Negativemg/dL (NEGATIVE) Urine Occult Blood Small (NEGATIVE) Urine Nitrite Negative (NEGATIVE) Urine Bilirubin Negative (NEGATIVE) Urine Urobilinogen Normalmg/dL (NORMAL) Urine Leukocyte Esterase Small (NEGATIVE) Urine RBC 0-2/hpf (0-2) Urine WBC 11-50/hpf (0-5) Urine Epithelial Cells Occasional/hpf (NONE-MOD) Urine Crystals None seen (NONE SEEN) Urine Bacteria Few/hpf (NONE-FEW) Urine Hyaline Casts None/lpf (NONE) Urine Granular Casts None seen (NONE SEEN) Urine Waxy Casts None seen (NONE SEEN) Urine Red Blood Cell Casts None seen (NONE SEEN) Urine White Blood Cell Casts None seen (NONE SEEN) Urine Mucus None seen (None Seen) Urine Trichomonas None seen (NONE SEEN) Urine Yeast None (NONE SEEN) Urinalysis Comment None Urine Culture Reflexed Indicated Total Creatine Kinase 57U/L (21-215) Creatine Kinase MB 3.2ng/mL (0.0-5.3) Creatine Kinase MB % % (0.0-5.0) Troponin T 0.175ug/L (0.0-0.011) Neutrophils (%) (Auto) 57.1% (40-74) Lymphocytes (%) (Auto) 22.9% (14-46) Monocytes (%) (Auto) 10.8% (4-12) Eosinophils (%) (Auto) 6.7% (0-5) Basophils (%) (Auto) 2.4% (0-3) Total Bilirubin 0.5mg/dL (0.0-1.2) Aspartate Amino Transf (AST/SGOT) 16U/L (0-50) Alanine Aminotransferase (ALT/SGPT) 13U/L (0-32) Alkaline Phosphatase 72U/L (25-165) Total Protein 6.2g/dL (6.4-8.4) Albumin 3.0g/dL (3.4-5.0) Triglycerides Level 81mg/dL (0-149) Cholesterol Level 119mg/dL (100-199) LDL Cholesterol, Calculated 54.800mg/dL (0-99) VLDL Cholesterol 16.200mg/dL HDL Cholesterol 48mg/dL (>39) Cholesterol/HDL Ratio 2.48 (0.0-4.4) Test 03/08/17 14:21 03/09/17 04:43 03/09/17 06:05 03/12/17 05:45 Activated Partial Thromboplast Time 87.0sec (22.8-33.0) Urine Random Creatinine 21mg/dL (15-278) Urine Random Total Protein 20mg/dL (0-15) Phosphorus Level 5.5mg/dL (2.5-4.9) Iron Level 74ug/dL (35-150) Total Iron Binding Capacity 186ug/dL (250-450) Percent Iron Saturation 40%sat (15-50) Unsaturated Iron Binding 112.2ug/dL Ferritin 171ng/mL (13-150) Vitamin B12 Level 431pg/mL (211-946) Vitamin D 25-Hydroxy 16.1ng/mL (30.0-100.0) Folate > 19.9ng/mL (>3.0) Parathyroid Hormone (Intact) 205pg/mL (15-65) HIV (1&2) Ag and Ab, 4th Generation Non reactive (Non Reactive) Magnesium Level 2.0mg/dL (1.6-2.6) Test 03/14/17 14:50 03/15/17 05:50 Hepatitis B Surface Antigen Negative (Negative) Hepatitis B Surface Antibody Non reactive (.) Hepatitis B Core Total Antibody Negative (Negative) Hepatitis C Antibody <0.1s/co ratio (0.0-0.9) White Blood Count 6.4th/mm3 (3.8-10.1) Red Blood Count 3.00mil/mm3 (3.90-5.20) Hemoglobin 8.6g/dL (12.0-15.6) Hematocrit 27.2% (35.0-46.0) Mean Corpuscular Volume 90.7fL (81-100) Mean Corpuscular Hemoglobin 28.7pg (27.0-35.0) Mean Corpuscular Hemoglobin Concent 31.6% (32.0-37.0) Red Cell Distribution Width 14.2% (12.3-15.4) Platelet Count 224bil/L (150-400) Sodium Level 135mEq/L (134-144) Potassium Level 4.7mEq/L (3.5-5.2) Chloride Level 96mEq/L (97-108) Carbon Dioxide Level 25mmol/L (18-29) Blood Urea Nitrogen 61mg/dL (8-27) Creatinine 3.33mg/dL (0.57-1.00) Estimat Glomerular Filtration Rate 19mL/min (>59) Glucose Level 145mg/dL (60-99) Calcium Level 8.4mg/dL (8.5-10.1) Discharge Medications Discharge Medications Amlodipine (Amlodipine) 10 Mg Tablet 10 MG PO DAILY Prescribed by: TIN MCKEON MD Aspirin (Aspirin) 325 Mg Tablet 325 MG PO DAILY Prescribed by: TIN MCKEON MD Atorvastatin (Lipitor) 20 Mg Tablet 20 MG PO DAILY (Reported) Carvedilol (Carvedilol) 12.5 Mg Tablet 12.5 MG PO BID Prescribed by: TIN MCKEON MD Glipizide (Glipizide) 5 Mg Tablet 5 MG PO BID (Reported) Hydralazine (Hydralazine) 25 Mg Tablet 25 MG PO TID Prescribed by: TIN MCKEON MD Insulin Detemir (Levemir Flextouch) 100 Unit/1 Ml Insuln.pen 10 UNIT SQ DAILY ( Reported) Isosorbide Dinitrate (Isordil Titradose) 5 Mg Tablet 10 MG PO Q8 Prescribed by: TIN MCKEON MD Losartan Potassium (Cozaar) 50 Mg Tablet 50 MG PO DAILY Prescribed by: TIN MCKEON MD As needed Nitroglycerin SL (Nitrostat) 0.4 Mg Tab.subl 0.4 MG SL Q5MIN PRN PRN For Chest Pain Prescribed by: TIN MCKEON MD Followup Plan Disposition: Home Follow-up plan 1. Followup with primary care provider within in one week 2. [facility] Friday[facility]/18/17 at 8:00AM for another round of hemodialysis. At that visit ask the staff regarding plan for further dialysis schedule and further followup appointment with nephrology ( Dr. Beck). Discharge Diet: Low fat, Low Sodium, Heart Healthy, Diabetic, Renal Diet Discharge Activity: No restrictions Patient Instructions Seek immediate medical attention if any new or worsening signs or symptoms occur. Patient expresses clear verbal understanding of mentioned plans and followup and agrees. Follow-up Provider: Laz Beck DO Follow-up with PCP in: 1 week Time spent 35 min copies to: Laz Beck DO Tin Mckeon March 16, 2017 15:03
== END 2017-03-16 13:40 | disposition home or self-care (01) | DRG 291 ==
LOC: SED 07:59 → MPC 13:45
PROVIDERS: ADMIT Family Medicine; ATTEND Family Medicine
PROC: 30233N1 Transfusion of Nonautologous Red Blood Cells into Peripheral Vein, Percutaneous Approach (ICD-10-PCS; 2017-03-09)
PROC: 05HM33Z Insertion of Infusion Device into Right Internal Jugular Vein, Percutaneous Approach (ICD-10-PCS; principal; 2017-03-14)
PROC: B513ZZA Fluoroscopy of Right Jugular Veins, Guidance (ICD-10-PCS; 2017-03-14)
PROC: 5A1D60Z (ICD-10-PCS; 2017-03-14)
DX: I13.2 Hypertensive heart and chronic kidney disease with heart failure and with stage 5 chronic kidney disease, or end stage renal disease (principal); I50.33 Acute on chronic diastolic (congestive) heart failure; N18.5 Chronic kidney disease, stage 5; E87.2 Acidosis; N17.9 Acute kidney failure, unspecified; E11.22 Type 2 diabetes mellitus with diabetic chronic kidney disease; E11.65 Type 2 diabetes mellitus with hyperglycemia; E87.5 Hyperkalemia; D63.1 Anemia in chronic kidney disease; E78.5 Hyperlipidemia, unspecified; E11.42 Type 2 diabetes mellitus with diabetic polyneuropathy; Z79.4 Long term (current) use of insulin